=== PATIENT | male | born 1945 | race Caucasian/White ===

== ENCOUNTER 2017-06-20 14:19 | Inpatient (IN) ==
[2017-06-20] MEDS ORDERED: *HR* Heparin 5,000 UNIT/ML VIAL IVP ONE (14:48)
[2017-06-20] MEDS ORDERED: *HR* Heparin 5,000 UNIT/ML VIAL IVP PRN ×2 (14:48)
--- NOTE | 2017-06-20 14:48 | Emergency Department Note ---
Disposition Clinical Impression: NSTEMI (non-ST elevated myocardial infarction) CHF (congestive heart failure) Qualifiers: Congestive heart failure type: systolic Congestive heart failure chronicity: acute Qualified Code(s): I50.21 - Acute systolic (congestive) heart failure Disposition: Admitted As Inpatient Condition: Fair Chest Pain HPI - General Chief Complaint: ED Chest Pain Stated Complaint: shortness of breath Time Seen by Provider: 06/20/17 14:23 Source: patient Limitations: no limitations Vital Signs Reviewed: Yes Nursing Notes Reviewed: Yes - History of Present Illness HPI Narrative: Patient presents for evaluation of CHF exacerbation and an STEMI from [place] urgent care. Patient experienced chest pain started yesterday. Describes as chest tightness similar to previous [place]. Patient has history of 5 stents with most recent stent placed a year ago last January. Patient states this chest tightness feels like similar anginal pain. Patient continues to have pain at rest. Patient was found to have the following labs at urgent care. Patient requiring 2 L nasal cannula to keep his oxygen at 97%. Patient has home oxygen that he uses intermittently and has required over the last [address] elevation Urine is clear and otherwise unremarkable except for trace urine protein CBC: WBC 10. Hemoglobin 13.3. Platelets 323. No significant left shift. Chemistry: Troponin 0.113. AST 18. LT 33. Total bili 1.4. Direct bili 0.5. Calcium 9.2. Albumin 3.1. Sodium 139. Potassium 3.9. Chloride 102. Glucose 157. Bun 47. Creatinine 2.05. GFR 34.2. NT proBNP 7358 INR 5.3. PT 50.3. Chest x-ray concerning for CHF the disc has been sent to radiology to be uploaded Patient will need to be started on heparin. A BMP, troponin, EKG, coags have been ordered. The patient will receive sublingual nitroglycerin attempt to make him chest pain-free. The patient be admitted for CHF exacerbation and NSTEMI. Severity scale (1-10): 4 - Related Data Home Medications Medication Instructions Recorded Confirmed Aspirin Enteric Coated [Aspirin EC] 81 mg PO DAILY 05/21/15 06/20/17 Metoprolol XL (24 HR) Succ [Toprol 100 mg PO DAILY 05/21/15 06/20/17 XL] Amlodipine Besylate 10 mg PO DAILY 01/28/16 06/20/17 Atorvastatin [Lipitor] 40 mg PO HS 01/28/16 06/20/17 Magnesium Oxide [Mag-Ox] 400 mg PO TID 01/28/16 06/20/17 [place]-3/Dha/Epa/Fish Oil [Fish Oil 2 cap PO BID 01/28/16 06/20/17 1,000 mg Softgel] Omeprazole [PriLOSEC] 20 mg PO BIDAC 01/28/16 06/20/17 Saxagliptin HCl [Onglyza] 5 mg PO DAILY 01/28/16 06/20/17 glipiZIDE [Glipizide] 20 mg PO BID 01/28/16 06/20/17 Warfarin [Coumadin] 2 mg PO SUTUWEFRSA 02/12/16 06/20/17 Warfarin [Coumadin] 4 mg PO MOTH 02/12/16 06/20/17 Sour [place] Extract [Tart [place] 1,000 mg PO DAILY 06/20/17 06/20/17 Extract] Previous Rx's Medication Instructions Recorded Isosorbide MONOnitrate (24 HR) 30 mg PO DAILY #30 tab.er.24h 05/22/15 [Imdur] Furosemide [Lasix] 40 mg PO BID #60 tablet 01/31/16 Allergies Allergy/AdvReac Type Severity Reaction Status Date / Time No Known Allergies Allergy Verified 05/21/15 16:32 Review of Systems: CONSTITUTIONAL: No weight loss, fever, chills, weakness or fatigue. HEENT: Eyes: No visual changes. Ears, Nose, Throat: No hearing loss, difficulty talking or unable to swallow. SKIN: No rash or itching. CARDIOVASCULAR: Chest pain RESPIRATORY: Shortness of breath GASTROINTESTINAL: No anorexia, nausea, vomiting or diarrhea. No abdominal pain or blood. GENITOURINARY: No burning on urination or hematuria. NEUROLOGICAL: No headache, dizziness, syncope, paralysis, ataxia, numbness or tingling in the extremities. No change in bowel or bladder control. MUSCULOSKELETAL: No muscle pain, back pain, joint pain or stiffness. Chest Pain PMH - Past Medical History Medical history: Reports: atrial fibrillation, CHF, coronary artery disease, CVA , diabetes, GERD, hyperlipidemia, hypertension, myocardial infarction, renal disease, TIA Surgical history: Reports: orthopedic, other Psychiatric history: Reports: no psych history - Social History Smoking Status: Former smoker Alcohol use: Reports: none Drug use: Reports: none Physical Exam General: Well appearing, nontoxic, no acute distress Head: Normocephalic Atraumatic Eyes: PERRL, EOMI ENT: Airway patent, no stridor Neck: supple, no meningismus Chest: Rales at the bases bilaterally Cardiac: Regular rate and rhythm, no murmurs, rubs or gallops Abdomen: soft, nontender, nondistended; no guarding, rebound, or tenderness to percussion Musculoskeletal: Calves symmetric, nontender, no palpable cord Skin: No rash, normal skin tone Neuro: Alert and Oriented to person, place, and time; No focal deficit, CN 2-12 symmetric and intact - General Limitations: no limitations General appearance: alert, in no apparent distress Course - Reevaluation(s) Reevaluation #1: Patient's pain has improved with nitroglycerin. Pain is now a 1 out of 10. Patient will be placed on nitroglycerin topical. Patient will continued to be managed symptomatically. Heparin was initially ordered. The INR is greater than 5. Patient does not need heparin at this time. Heparin orders canceled. Patient did not receive any heparin while in the emergency department. - Consultations Consultation #1: Discussed with cardiology, Dr. Mcginnis. Recommends heparin only if INR drops below 2. Otherwise recommend symptomatically controlled with nitroglycerin, AV node blockers, morphine as needed. He has a previous cardiac catheter from 2016 that was complicated in nature. They will see him as a consult once the patient is admitted. Consultation #2: Discussed with Dr. Bo. Patient accepted for admission. Vital Signs Temperature 98.3 F 06/20/17 14:22 Pulse Rate 89 06/20/17 14:22 Respiratory Rate 21 06/20/17 14:22 Blood Pressure 145/85 06/20/17 14:22 O2 Sat by Pulse Oximetry 96 06/20/17 14:22 Temperature 98.3 F 06/20/17 14:39 Pulse Rate 84 06/20/17 17:16 Respiratory Rate 20 06/20/17 17:16 Blood Pressure 159/85 06/20/17 17:16 O2 Sat by Pulse Oximetry 94 06/20/17 17:16 Oxygen Delivery Oxygen Delivery Nasal Cannula Chest Pain - Medical Records Medical records reviewed: Yes I reviewed the patient's medical records. - Lab Data Lab results reviewed: Yes I reviewed the patient's lab results. Result diagrams: 06/20/17 14:52 Lab Results 06/20/17 06/20/17 06/20/17 Range/Units 14:52 14:52 14:52 PT 58.6 H* (9.4-12.1) Seconds INR 5.3 H* APTT 41.5 H (26.0-36.0) Seconds Sodium 141 (136-145) mEq/L Potassium 3.9 (3.5-5.1) mEq/L Chloride 103 (98-107) mEq/L Carbon Dioxide 29 (23-29) mEq/L BUN 47 H (8-23) mg/dL Creatinine 1.76 H (0.70-1.30) mg/dL Est GFR ( Amer) 46 L (> 60) Est GFR (Non-Af Amer) 38 L (> 60) BUN/Creatinine Ratio 27 H (6-26) Glucose 101 (70-105) mg/dL Calculated Osmolality 304 H (280-300) Calcium 9.4 (8.6-10.3) mg/dL Troponin I 0.10 H* (< 0.04) ng/mL - Radiology Data Radiology results reviewed: Yes I reviewed the patient's radiology results. - EKG Data EKG attestation: Yes I reviewed and interpreted this EKG. EKG results narrative: EKG shows atrial fibrillation with ventricular rate of 98. QRS 114. QTC 430. Patient has T-wave flattening along the lateral leads in comparison with previous EKG of 01/28/16. No other significant changes. No ST elevation or depression. Attestation Statement - Attestation Attestation: I examined this patient and my medical decision-making was reviewed with the Resident Physician. I agree with the documented findings, disposition and treatment plan as described except to the extent set forth below. 71-year-old male presents to ED from the [facility] due to chest pain. He has had chest pain intermittently through the day prompting workup at the [place] urgent care. He was found have elevated troponin and sent here for further evaluation. Patient is still complains of ongoing chest tightness that he describes a 4 out of 10 in intensity. No associated diaphoresis or nausea or vomiting. Complains of generalized fatigue. Pain is similar to what he has had in the past in 2016 when he required placement of coronary stents per Dr. Ela Jensen elderly male in no apparent distress. Oropharynx is clear with mucous membranes moist. Neck supple. Trachea midline. Lung exam with basilar rales. Cardiac exam is irregular, no murmurs Chest wall is nontender. Abdomen soft, nondistended and nontender. Extremities with bilateral mild pitting edema. EKG without acute changes. [facility] and his troponins elevated. He is given aspirin. His INR was greater than 5 so heparin was not started. He will be admitted for further evaluation and treatment. The high probability of a clinically significant, sudden or life threatening deterioration of the [cardiopulmonary] system(s) required my full and direct attention, intervention and personal management. The aggregate critical care time was [15] minutes. This time is in addition to time spent performing reported procedures but includes the following: [x] Data Review and interpretation [x] Patient assessment and monitoring of vital signs [x] Documentation [x] Medication orders and management
[2017-06-20] MEDS ORDERED: Furosemide 40 MG/4 ML VIAL IVP STA (14:53)
[2017-06-20] MEDS ORDERED: Aspirin 81 MG TAB.CHEW PO STA (14:55)
[2017-06-20] MEDS ORDERED: Heparin 25,000 UNIT/500 ML D5W 25,000 UNIT/500 ML BAG IVC SCH (15:00)
[2017-06-20 15:06] LABS: Activated Partial Thrombo Time 41.5 Seconds (26.0-36.0)
[2017-06-20 15:10] LABS: INR 5.3; Prothrombin Time 58.6 Seconds (9.4-12.1)
[2017-06-20 15:12] LABS: Calcium 9.4 mg/dL (8.6-10.3); Potassium 3.9 mEq/L (3.5-5.1)
[2017-06-20] MEDS: Nitroglycerin 0.4 MG TAB.SUBL SL PRN ×2 (15:45→15:54)
[2017-06-20] MEDS ORDERED: Nitroglycerin 1 INCH/GM PACKET TP ONE (17:22)
[2017-06-20 20:07] LABS: Basophils # 0.1 K/mcL (0.0-0.2); Basophils % 0.8 %; Eosinophils # 0.2 K/mcL (0.0-0.6); Eosinophils % 1.9 %; Hematocrit 33.2 % (37.5-50.1); Hemoglobin 10.4 g/dL (12.9-16.9); Immature Granulocytes % 0.3 % (0-4); Lymphocytes # 0.9 K/mcL (0.6-4.6); Lymphocytes % 10.8 %; Mean Corpuscular HGB Conc 31.3 g/dL (31.6-35.5); Mean Corpuscular Hemoglobin 28.6 pg (28.0-33.3); Mean Corpuscular Volume 91.2 fL (83.0-100.0); Mean Platelet Volume 9.4 fL (9.4-12.4); Monocytes # 0.8 K/mcL (0.0-1.3); Monocytes % 9.1 %; Neutrophils # 6.6 K/mcL (1.6-8.9); Nucleated Red Blood Cells 0.3 /100 WBC (0); Platelet Count 298 K/mcL (140-400); Red Blood Count 3.64 M/mcL (4.19-5.50); Segmented Neutrophils % 77.1 %
[2017-06-20] MEDS ORDERED: Ondansetron 4 MG/2 ML VIAL IVP PRN (20:16)
[2017-06-20] MEDS ORDERED: Naloxone 0.4 MG/ML INJ IVP PRN (20:16)
[2017-06-20 20:21] LABS: Albumin 3.4 g/dL (3.5-5.7); Bilirubin,Total 1.4 mg/dL (0.3-1.0); Calcium 9.5 mg/dL (8.6-10.3); Globulin 3.4 g/dL (2.4-3.5); Potassium 3.7 mEq/L (3.5-5.1); Total Protein 6.8 g/dL (6.4-8.9)
--- NOTE | 2017-06-20 20:43 | Internal Med History&Physical ---
Date of Encounter: 06/20/17 Time of Encounter: 19:30 Assessment and Plan (1) Chest tightness Current visit: Yes Status: Acute Patient reports acute chest pressure and tightness in central chest similar to previous [place]. Initial troponin 0.10. Pt. has hx of elevated troponins r/t MIs. Hx of stent placement x5. Nitro paste applied and pt. reports he now has no CP. Pt. currently has supretherapeutic INR @ 5.3 on admission. Continue pts. Coumadin w/pharmacy dosing for lab monitoring. Cardiology consult discussed w/ Dr. Mcginnis while pt. was in ED w/recommendation for heparin only if INR drops below 2, otherwise recommend symptomatically controlled with nitroglycerin, AV node blockers, and morphine as needed. I appreciate the consult. Aspirin. Lipitor. Continuous cardiac telemetry. Will trend troponins x2. Monitor pt. and f/u labs. Pt. discussed w/Dr. Gutierrez who is in agreement w/plan of care. Pt. is high risk for cardiac event based on current sx, exacerbation of CHF, hx, and risk factors. Inpatient. (2) Acute exacerbation of CHF (congestive heart failure) Current visit: Yes Status: Acute Acute exacerbation of CHF. Pt. reports SOB, dyspnea, and orthopnea for the past 2-3 days. 1+ bilateral pedal edema in LEs. Pt. reports taking PO lasix 40 mg BID. Hold PO lasix and administer 40 mg IVP lasix. Monitor I&O and daily weight. 1.5L daily fluid restriction. Continuous cardiac telemetry. Supplemental O2 w/titration and SpO2 monitoring. Echocardiogram ordered. Qualifiers: Congestive heart failure type: systolic Qualified Code(s): I50.23 - Acute on chronic systolic (congestive) heart failure (3) Supratherapeutic INR Current visit: Yes Status: Acute Acute supratherapeutic INR of 5.3 on admission. Coumadin w/pharmacy dosing to monitor coagulation status. Repeat PT/INR in a.m. labs. Monitor pt. for signs of bleeding. (4) HTN (hypertension) Current visit: Yes Status: Chronic Hx of chronic HTN. Monitor pt. and VS. patient's metoprolol, Imdur, and amlodipine. Qualifiers: Hypertension type: essential hypertension Qualified Code(s): I10 - Essential (primary) hypertension (5) HLD (hyperlipidemia) Current visit: Yes Status: Chronic Hx of chronic HLD. Lipid panel in a.m. labs. Continue pts. Lipitor. Qualifiers: Hyperlipidemia type: pure hypercholesterolemia Qualified Code(s): E78.00 - Pure hypercholesterolemia, unspecified; E78.0 - Pure hypercholesterolemia (6) CAD (coronary artery disease) Current visit: Yes Status: Chronic Hx of chronic CAD w/hx of previous [place] and stent placement x5. Continue pts. aspirin therapy, Coumadin w/pharmacy dosing, metoprolol, amlodipine, Imdur, and Lipitor. Lipid panel in a.m. labs. Qualifiers: Coronary Disease-Associated Artery/Lesion type: [place] artery [place] vs. transplanted heart: [place] heart Associated angina: without angina Qualified Code(s): I25.10 - Atherosclerotic heart disease of [place] coronary artery without angina pectoris (7) GERD (gastroesophageal reflux disease) Current visit: Yes Status: Chronic Hx of chronic GERD. IVP Zofran 4 mg Q8 for N/V. Continue pts. Prilosec. Qualifiers: Esophagitis presence: esophagitis presence not specified Qualified Code(s) : K21.9 - Gastro-esophageal reflux disease without esophagitis (8) Afib Current visit: Yes Status: Chronic Hx of chronic atrial fibrillation. Continuous cardiac telemetry. Continue pts. Coumadin w/pharmacy dosing. Qualifiers: Atrial fibrillation type: chronic Qualified Code(s): I48.2 - Chronic atrial fibrillation (9) Diabetes mellitus Current visit: Yes Status: Chronic Hx of chronic diabetes controlled by oral anti-hyperglycemic medications. Will hold PO meds and administer low-dose correction insulin sliding scale and hypoglycemic protocol. BG checks ACHS. A1c in a.m. labs. Qualifiers: Diabetes mellitus type: type 2 Diabetes mellitus complication status: with circulatory complication Diabetes mellitus complication detail: with other circulatory complications Diabetes mellitus snf insulin use: unspecified snf insulin use status Qualified Code(s): E11.59 - Type 2 diabetes mellitus with other circulatory complications (10) DVT prophylaxis Current visit: Yes Status: Acute Continue pts. Coumadin w/pharmacy dosing for DVT prophylaxis d/t pts. current INR of 5.3. Monitor pt. for signs of bleeding. Internal Medicine - H&P: HPI Chief complaint: Chest pain/SOB Admitted From: Emergency Dept ([facility]) Plans for Post Hospital Care: Home History of present illness: Mr. Nowak is a 71 year old male with medical hx of atrial fibrillation, CHF, CAD, CVA, diabetes controlled with oral anti-hyperglycemics, GERD, HLD, HTN, previous [place], and chronic kidney disease presents from the [place] urgent care with chief complaint of chest pressure and shortness of breath that began yesterday morning. Describes chest discomfort as pressure and central chest similar to previous [place] sx.Hx of placement of 5 stents with most recent in January 2017. Patient reports home oxygen use at 2 L via nasal cannula and states he believes current sx are due to CHF. Patient denies recent illness, fever, chills, nausea , vomiting, changes in vision, headache, cough, chest congestion, palpitations, unusual bleeding, dizziness, lightheadedness, weakness, fatigue, numbness, tingling, pre-syncope, or syncope. Past Med Surg Social Fam HX - Past Medical History Source: patient, old records reviewed Medical history: atrial fibrillation, CHF, coronary artery disease, CVA, diabetes, GERD, hyperlipidemia, hypertension, myocardial infarction, renal disease, TIA Psychiatric history: no psych history - Past Surgical History Surgical History: angioplasty/stent (x5), other (Tonsillectomy) - Social History Smoking Status: Former smoker Packs per day: 2 PPD - Reports quitting 20 years ago Smokeless Tobacco Status: No Alcohol use: none Drug use: none Occupational status: retired Current living situation: Home, With Family Activity Level: Uses cane/walker Recent Out of Country Travel Within the Last 8 Weeks: No Exposure or Possible Exposure to Illness During Travel: No - Family History Father Adopted: Yes Race: Family Member Ethnicity: Non- Living Status: Age at : 83 Cause of : [place] Hx Family Cardiac Disorders: Yes ([place]) Hx Family GI Disorders: Yes (Gastric ulcers) Mother Race: Family Member Ethnicity: Non- Living Status: Age at : 62 Cause of : Colon cancer Hx Family Cancer: Yes (Colon) Brother Race: Family Member Ethnicity: Non- Living Status: Still Living Hx Family Cardiac Disorders: Yes ([place] at age 68, CAD, Stents x3, Open heart surgery) Internal Medicine - H&P: Meds Aspirin Enteric Coated [Aspirin EC] 81 mg PO DAILY 05/21/15 [History] Metoprolol XL (24 HR) Succ [Toprol XL] 100 mg PO DAILY 05/21/15 [History] Isosorbide MONOnitrate (24 HR) [Imdur] 30 mg PO DAILY #30 tab.er.24h 05/22/15 [ Rx] Amlodipine Besylate 10 mg PO DAILY 01/28/16 [History] Atorvastatin [Lipitor] 40 mg PO HS 01/28/16 [History] Magnesium Oxide [Mag-Ox] 400 mg PO TID 01/28/16 [History] [place]-3/Dha/Epa/Fish Oil [Fish Oil 1,000 mg Softgel] 2 cap PO BID 01/28/16 [ History] Omeprazole [PriLOSEC] 20 mg PO BIDAC 01/28/16 [History] Saxagliptin HCl [Onglyza] 5 mg PO DAILY 01/28/16 [History] glipiZIDE [Glipizide] 20 mg PO BID 01/28/16 [History] Furosemide [Lasix] 40 mg PO BID #60 tablet 01/31/16 [Rx] Warfarin [Coumadin] 2 mg PO SUTUWEFRSA 02/12/16 [History] Warfarin [Coumadin] 4 mg PO MOTH 02/12/16 [History] Sour [place] Extract [Tart [place] Extract] 1,000 mg PO DAILY 06/20/17 [History] 3 Allergy/AdvReac Type Severity Reaction Status Date / Time No Known Allergies Allergy Verified 05/21/15 16:32 All Systems PM: A 10-system review of systems was performed and is negative for pertinent findings except as documented above in the HPI. - Constitutional Constitutional: no chills, no fever(s), no night sweats - EENT Eyes: no change in vision, no discharge, no pain, no photophobia Ears: no ear discharge, no ear pain, no tinnitus Nose, mouth and throat: no dysphagia, no nasal discharge, no neck pain, no sore throat - Breasts Breasts: as per HPI - Cardiovascular Cardiovascular ROS IM: as per HPI, chest pain, dyspnea, dyspnea on exertion, edema (Bilateral 1+ pitting edema), irregular heart rhythm (Atrial fibrillation) , orthopnea, no diaphoresis, no lightheadedness, no palpitations, no syncope - Respiratory Respiratory: as per HPI, dyspnea, dyspnea on exertion, no cough, no wheezing, no excessive phlegm production - Gastrointestinal Gastrointestinal: no abdominal pain, no diarrhea, no hematemesis, no hematochezia, no melena, no nausea, no vomiting - Genitourinary Genitourinary ROS male: as per HPI - Musculoskeletal Musculoskeletal ROS IM: no numbness, no tingling - Integumentary Integumentary IM: no rash, no unusual bruising - Neurological Neurological ROS: no confusion, no convulsions, no focal weakness, no numbness, no tingling, no tremor(s) - Psychiatric Psychiatric: as per HPI - Endocrine Endocrine IM: as per HPI - Hematologic/Lymphatic Hematologic/Lymphatic: no easy bruising - Allergic/Immunologic Allergic/Immunologic: as per HPI - Constitutional Vitals: Temp Pulse Resp BP Pulse Ox 97.9 F 110 18 135/70 92 06/20/17 18:01 06/20/17 18:01 06/20/17 18:01 06/20/17 18:01 06/20/17 18:01 General appearance: Present: cooperative, A&O X 3, pleasant, no acute distress, obese, answers questions appropriately - Head Head exam: Present: atraumatic, normocephalic - Eye Eye exam: Present: PERRL, conjuntiva pink, sclera anicteric Pupils: Present: PERRL - ENT ENT exam: Present: normal exam - Neck Neck exam general surgery: Present: normal inspection, supple, trachea midline. Absent: lymphadenopathy - Respiratory Respiratory exam: Present: decreased breath sounds. Absent: accessory muscle use, rales, rhonchi, wheezes - Cardiovascular Cardiovascular exam: Present: irregular rhythm (Atrial fibrillation) - GI/Abdominal GI/Abdominal exam: Present: normal bowel sounds, soft, no peritoneal signs. Absent: distended, tenderness - Rectal Rectal exam: Present: deferred - Additional comments: exam deferred. - Extremities Exam Extremities exam: Present: pedal edema (1+ bilaterally), warm, radial pulses palpable and symmetrical. Absent: calf tenderness, cyanotic - Back Exam Back exam: Present: normal inspection - Neurological Exam Neurological exam: Present: CN II-XII intact, oriented X3, no focal deficits. Absent: pronater drift, facial droop, speech deficit - Psychiatric Psychiatric exam: Present: normal affect, normal mood - Skin Skin exam: Present: dry, intact Internal Med - H&P Results - Labs CBC & Chem 7: 06/20/17 19:58 06/20/17 19:58 Labs: Short CBC 06/20/17 Range/Units 19:58 WBC 8.6 (4.3-11.1) K/mcL Hgb 10.4 L (12.9-16.9) g/dL Hct 33.2 L (37.5-50.1) % Plt Count 298 (140-400) K/mcL Neutrophils # 6.6 (1.6-8.9) K/mcL BMP 06/20/17 19:58 Sodium 143 Potassium 3.7 Chloride 103 Carbon Dioxide 31 H BUN 47 H Creatinine 1.68 H Glucose 68 L Calcium 9.5 Liver Function 06/20/17 Range/Units 19:58 Total Bilirubin 1.4 H (0.3-1.0) mg/dL AST 16 (13-39) Units/L ALT 21 (7-52) Units/L Alkaline Phosphatase 47 (34-104) Units/L Albumin 3.4 L (3.5-5.7) g/dL - EKG Data Prior EKG available for review: yes Interpretation IM: suggestive of ischemia EKG comments: 06/20/17 20:48 EKG dated 01/28/16 shows atrial fibrillation with possible inferior myocardial infarction, probably old. EKG dated 06/20/17 shows atrial fibrillation with aberrant conduction or ventricular premature complexes, minimal voltage criteria for LVH, consider normal variant, inferior myocardial infarction (probably old).
[2017-06-20] MEDS ORDERED: *HR* Dextrose 50 % in Water (Syg) 50 ML SYRINGE IVP PRN (20:58)
[2017-06-20] MEDS ORDERED: D5% in Water 1,000 ML IVC PRN (20:58)
[2017-06-20] MEDS ORDERED: Dextrose Gel 15 GM/37.5 ML TUBE PO PRN ×2 (20:58)
[2017-06-20] MEDS: Insulin LISPRO 300 UNITS/3 ML VIAL SQ SCH (21:23)
[2017-06-20] MEDS: Magnesium Oxide 400 MG TABLET PO SCH (21:29)
[2017-06-20] MEDS: (Omega-3/Dha/Epa/Fish Oil [Fish Oil 1,000 Mg Softgel]) PO SCH (21:30)
[2017-06-20] MEDS: Furosemide 40 MG/4 ML VIAL IVP SCH (21:30)
[2017-06-21 05:08] LABS: Basophils # 0.1 K/mcL (0.0-0.2); Basophils % 0.8 %; Eosinophils # 0.3 K/mcL (0.0-0.6); Eosinophils % 2.9 %; Hematocrit 33.9 % (37.5-50.1); Hemoglobin 10.3 g/dL (12.9-16.9); Immature Granulocytes % 0.6 % (0-4); Lymphocytes # 0.8 K/mcL (0.6-4.6); Lymphocytes % 7.9 %; Mean Corpuscular HGB Conc 30.4 g/dL (31.6-35.5); Mean Corpuscular Hemoglobin 28.2 pg (28.0-33.3); Mean Corpuscular Volume 92.9 fL (83.0-100.0); Mean Platelet Volume 10.1 fL (9.4-12.4); Monocytes # 0.8 K/mcL (0.0-1.3); Monocytes % 8.1 %; Neutrophils # 7.7 K/mcL (1.6-8.9); Nucleated Red Blood Cells 0.2 /100 WBC (0); Platelet Count 329 K/mcL (140-400); Red Blood Count 3.65 M/mcL (4.19-5.50); Segmented Neutrophils % 79.7 %
[2017-06-21 05:17] LABS: Activated Partial Thrombo Time 39.7 Seconds (26.0-36.0); Hemoglobin A1C 8.6 %
[2017-06-21 05:21] LABS: INR 4.9
[2017-06-21 05:28] LABS: Albumin 3.5 g/dL (3.5-5.7); Bilirubin,Total 1.3 mg/dL (0.3-1.0); Calcium 9.6 mg/dL (8.6-10.3); Chol/HDL Ratio 4.1 (0-4.9); Globulin 3.4 g/dL (2.4-3.5); Magnesium 1.8 mg/dL (1.6-2.6); Potassium 4.7 mEq/L (3.5-5.1); Total Protein 6.9 g/dL (6.4-8.9)
[2017-06-21] MEDS ORDERED: Isosorbide MONOnitrate (24 HR) 30 MG TAB.ER.24H PO SCH (09:00)
[2017-06-21] MEDS ORDERED: INSULIN GLARGINE 36 UNIT SQ SCH (09:00)
[2017-06-21] MEDS: Insulin LISPRO 300 UNITS/3 ML VIAL SQ SCH ×4 (10:02→21:54)
[2017-06-21] MEDS: Aspirin Enteric Coated 81 MG Tablet PO SCH (10:07)
[2017-06-21] MEDS: Furosemide 40 MG/4 ML VIAL IVP SCH ×2 (10:07→16:59)
[2017-06-21] MEDS: Magnesium Oxide 400 MG TABLET PO SCH ×3 (10:08→21:53)
[2017-06-21] MEDS: (Omega-3/Dha/Epa/Fish Oil [Fish Oil 1,000 Mg Softgel]) PO SCH ×2 (10:08→21:54)
[2017-06-21] MEDS: amLODIPine 5 MG TABLET PO SCH (10:08)
[2017-06-21] MEDS: Metoprolol XL (24 HR) Succ 50 MG TAB.ER.24H PO SCH (10:08)
[2017-06-21] MEDS: Insulin DETEMIR 100 UNIT/ML X5UNITS SQ SCH (10:15)
[2017-06-21] MEDS ORDERED: Perflutren Lipid Microsphere 1.3 ML in 0.9 % Sodium Chloride 8.7 ML IVP ONE (11:26)
[2017-06-21] MEDS ORDERED: Acetaminophen 325 MG TABLET PO PRN (13:54)
--- NOTE | 2017-06-21 14:41 | Cardiology Consult Note ---
<Shaheen Hess - Last Filed: 06/21/17 15:09> Date of Encounter: 06/21/17 Time of Encounter: 14:40 Assessment and Plan (1) Acute exacerbation of CHF (congestive heart failure) Current Visit: Yes Status: Acute Per Cardiology: History of mild ischemic cardiomyopathy. Last echo 12/2015: Impressions: Mildly dilated left ventricle. Moderate LV systolic dysfunction, LVEF 35-40%. There are regional wall motion abnormalities, see diagram below. Indeterminate diastolic function due to atrial fibrillation. Right ventricle not well visualized. Appears grossly normal in size and function. Mildly dilated left atrium. Mildly dilated right atrium. Moderate mitral regurgitation. Mild-moderate tricuspid regurgitation. Moderate pulmonary hypertension. Estimated RVSP = 54 mmHg. Current echo pending. Will check BNP. Will initiate strict I and O, 1.5 L fluid restriction, bilateral ASHLEE hose. Patient reports recent increased thirst and fluid intake, however baseline weight has been stable around 207 pounds. On IV Lasix 40 mg twice a day. Net I&O = -1305ml. Continue with diuresis, monitor kidney function closely. Qualifiers: Congestive heart failure type: systolic Qualified Code(s): I50.23 - Acute on chronic systolic (congestive) heart failure (2) Elevated troponin I measurement Current Visit: Yes Status: Acute Per Cardiology: Troponin is mildly elevated with peak of 0.12. Currently chest pain-free. Suspect the main ischemia in setting of acute systolic CHF on chronic CHF and known chronic CKD. Echo pending. No cardiac rehabilitation consult warranted at this time. (3) CAD (coronary artery disease) Current Visit: Yes Status: Chronic Per Cardiology: Known history of CAD with last heart catheterization January 2016 with drug- eluting stent to proximal circumflex 90% lesion and mid circumflex 90% lesion. Underwent PTCA for OM1 90% lesion with final stenosis of 85%-- noted to be jailed lesion. On Imdur 30mg PO daily. Will increase Imdur. On BB, statin, asa. Will monitor echo and eval for need of repeat ischemic eval-- possible ST vs LHC if clinically warranted. Will discuss with Dr. Mcginnis. Qualifiers: Coronary Disease-Associated Artery/Lesion type: [place] artery [place] vs. transplanted heart: [place] heart Associated angina: without angina Qualified Code(s): I25.10 - Atherosclerotic heart disease of [place] coronary artery without angina pectoris (4) Afib Current Visit: Yes Status: Chronic Per Cardiology: Known history of atrial fibrillation. Remains rate controlled. Anticoagulated with Coumadin followed by outside facility. Qualifiers: Atrial fibrillation type: chronic Qualified Code(s): I48.2 - Chronic atrial fibrillation (5) Supratherapeutic INR Current Visit: Yes Status: Acute Per Cardiology: Presented with supratherapeutic INR. Currently on hold. Denies any active bleeding or blood loss. Monitor cautiously. (6) CKD (chronic kidney disease) Current Visit: No Status: Chronic Per Cardiology: Known history of CKD. Kidney function currently around baseline. Monitor closely with diuresis. We'll need to monitor closely if further ischemic evaluation warranted. Qualifiers: Chronic kidney disease stage: stage 3 (moderate) Qualified Code(s): N18.3 - Chronic kidney disease, stage 3 (moderate) Discussion w patient/family: The assessment and plan as outlined above was discussed with the patient who expressed understanding and agreement. All questions were answered. Thank you for involving us in the care of your patient. Please call with any questions. History of Present Illness Consult date: 06/21/17 Requesting physician: Rosario Gutierrez Consult reason: CP Chief complaint: CP History of present illness: Mr. Nowak is a 71 year old male with relevant past history of atrial fibrillation on Coumadin for anticoagulation, ischemic cardio myopathy, hypertension, DM 2, history of CVA, CKD. Last seen by Dr. Mahmood with cardiology November 2016. Cardiology consult for shortness of breath, chest tightness, mild troponin elevation. Patient reports his normal state of health up until this past Thursday. He reports he noticed progressive worsening short of breath at rest and with exertion. He reports increased dry mouth and thirst and increased fluid intake over the past few days. He reports daily weights at home have been running stable at about 207 pounds. He reports increased swelling to lower extremities and abdominal distention. Reports recent breath has improved during hospital stay. He reports he did develop chest tightness with exertional activities and breathing the past few days. He denies any palpitations, dizziness, syncope, falls. He reports compliance with Coumadin being managed by Coumadin clinic in [facility]. He denies any active bleeding or blood loss. Denies any recent infectious process, denies any fever, chills, nausea, vomiting, diarrhea, cough. Reports compliance with medicines. Past Med Surg Social Fam HX - Past Medical History Attestation: Yes The following information was validated with the patient. Source: patient, old records reviewed Medical history: atrial fibrillation, CHF, coronary artery disease, CVA, diabetes, GERD, hyperlipidemia, hypertension, myocardial infarction, renal disease, TIA Psychiatric history: no psych history - Past Surgical History Surgical History: angioplasty/stent (x5), other (Tonsillectomy) - Social History Smoking Status: Former smoker Packs per day: 2 PPD - Reports quitting 20 years ago Smokeless Tobacco Status: No Alcohol use: none Drug use: none - Family History Father Adopted: Yes Race: Family Member Ethnicity: Non- Living Status: Age at : 83 Cause of : ND Hx Family Cardiac Disorders: Yes (ND) Hx Family Respiratory Disorders: No Hx Family Cancer: No Hx Family GI Disorders: Yes (Gastric ulcers) Hx Family Endocrine Disorder: No Hx Family Neuromuscular Disorders: No Hx Family Neurologic Disorders: No Hx Family HEENT Disorders: No Hx Family Autoimmune Disorders: No Mother Race: Family Member Ethnicity: Non- Living Status: Age at : 62 Cause of : Colon cancer Hx Family Cancer: Yes (Colon) Brother Race: Family Member Ethnicity: Non- Living Status: Still Living Hx Family Cardiac Disorders: Yes (ND at age 68, CAD, Stents x3, Open heart surgery) Medications and Allergies Aspirin Enteric Coated [Aspirin EC] 81 mg PO DAILY 05/21/15 [History] Metoprolol XL (24 HR) Succ [Toprol XL] 100 mg PO DAILY 05/21/15 [History] Isosorbide MONOnitrate (24 HR) [Imdur] 30 mg PO DAILY #30 tab.er.24h 05/22/15 [ Rx] Amlodipine Besylate 10 mg PO DAILY 01/28/16 [History] Atorvastatin [Lipitor] 40 mg PO HS 01/28/16 [History] Magnesium Oxide [Mag-Ox] 400 mg PO TID 01/28/16 [History] Burg[place]-3/Dha/Epa/Fish Oil [Fish Oil 1,000 mg Softgel] 2 cap PO BID 01/28/16 [ History] Omeprazole [PriLOSEC] 20 mg PO BIDAC 01/28/16 [History] Saxagliptin HCl [Onglyza] 5 mg PO DAILY 01/28/16 [History] glipiZIDE [Glipizide] 20 mg PO BID 01/28/16 [History] Furosemide [Lasix] 40 mg PO BID #60 tablet 01/31/16 [Rx] Warfarin [Coumadin] 2 mg PO SUTUWEFRSA 02/12/16 [History] Warfarin [Coumadin] 4 mg PO MOTH 02/12/16 [History] Insulin Glargine [Lantus] 36 unit SQ QAM 06/20/17 [History] Sour Marques Extract [Tart Marques Extract] 1,000 mg PO DAILY 06/20/17 [History] 3 Allergy/AdvReac Type Severity Reaction Status Date / Time No Known Allergies Allergy Verified 05/21/15 16:32 All Systems Review: A 10-system review of systems was performed and is negative for pertinent findings except as documented above in the HPI. - Constitutional Constitutional: fatigue - Cardiovascular Cardiovascular: as per HPI, chest pain at rest, dyspnea at rest, dyspnea on exertion, leg edema - Respiratory Respiratory: dyspnea Physical Examination Vital Signs, Last 4 Hours Temp Pulse Resp BP Pulse Ox 06/21/17 14:28 98.2 F 89 18 124/63 94 General: Conversant, No Apparent Distress HEENT: Atraumatic, Normocephaly, Mucus Membranes Moist Neck: No JVD, Normal carotid pulses Cardiac: No Murmur, Other (Irregularly irregular) Lungs: Other (Diminished bilateral bases) Neuro: Alert and responsive, No focal deficits noted Abdomen: Soft, Non-Tender, Other (Slightly distended) Skin: No rashes noted on visualized skin Musculoskeletal: No Chest Wall Tenderness, Other (has walker at bedside) Extremities: No Clubbing, No Cyanosis, Normal Pulses, Other (+1 pitting edmea bilateral LE) Results 06/21/17 04:12 06/21/17 04:12 Lab Results Laboratory Tests 06/20/17 06/20/17 06/20/17 14:52 14:52 21:44 INR 5.3 H* Creatinine AST ALT Troponin I 0.10 H* 0.12 H* LDL Cholesterol, Calc 06/21/17 06/21/17 06/21/17 04:12 04:12 04:12 INR 4.9 H* Creatinine 1.75 H AST 18 ALT 24 Troponin I 0.10 H* LDL Cholesterol, Calc 36 06/21/17 11:45 INR Creatinine AST ALT Troponin I 0.07 H* LDL Cholesterol, Calc ITS Impressions Chest X-Ray 06/20/17 20:50 IMPRESSION: Suspected central pulmonary vascular congestion. D/ / Thania Houston Cha, MD / Thania Houston Cha, MD Interpreting Provider: Thania Houston Cha, MD Intake & Output 06/18/17 06/19/17 06/20/17 06/21/17 23:59 23:59 23:59 23:59 Intake Total 520 / 520 Output Total 1825 / 1825 Balance -1305 / -1305 Weight 92.079 kg 92.4 kg Active Medications Acetaminophen (Tylenol) 650 mg PO Q6HR PRN PRN Reason: Pain Stop: 12/21/17 13:55 Last Admin: 06/21/17 14:27 Dose: 650 mg Amlodipine Besylate (Norvasc) 10 mg PO DAILY MARIO Stop: 12/21/17 09:01 Last Admin: 06/21/17 10:08 Dose: 10 mg Aspirin (Aspirin Ec) 81 mg PO DAILY MARIO Stop: 12/21/17 09:01 Last Admin: 06/21/17 10:07 Dose: 81 mg Atorvastatin Calcium (Lipitor) 40 mg PO HS MARIO Stop: 12/20/17 21:01 Last Admin: 06/20/17 21:29 Dose: 40 mg Dextrose/Water (Dextrose 50% (Syg)) 25 ml IVP AD PRN PRN Reason: Hypoglycemia Stop: 12/20/17 20:59 Furosemide (Lasix) 40 mg IVP BIDDIURETIC MARIO Stop: 12/20/17 21:01 Last Admin: 06/21/17 10:07 Dose: 40 mg Glucagon (Glucagen) 1 mg IM ONCE PRN PRN Reason: Hypoglycemia Stop: 12/20/17 20:59 Glucose (Gluctose) 15 gm PO ONCE PRN PRN Reason: Hypoglycemia Stop: 12/20/17 20:59 Glucose (Gluctose) 30 gm PO ONCE PRN PRN Reason: Hypoglycemia Stop: 12/20/17 20:59 Dextrose (Dextrose 5%) 1,000 mls @ 100 mls/hr IVC .Q10H PRN PRN Reason: HYPOGLYCEMIA Stop: 12/20/17 20:59 Insulin Detemir (Levemir) 36 unit SQ QAM [facility] Stop: 12/21/17 09:01 Last Admin: 06/21/17 10:15 Dose: 36 unit Insulin Human Lispro (Humalog) 0 units SQ TIDAC [facility] PRN Reason: Protocol Stop: 12/21/17 07:31 Last Admin: 06/21/17 11:59 Dose: 2 units Insulin Human Lispro (Humalog) 0 units SQ HS [facility] PRN Reason: Protocol Stop: 12/20/17 21:01 Last Admin: 06/20/17 21:23 Dose: Not Given Isosorbide Mononitrate (Imdur) 30 mg PO DAILY [facility] Stop: 12/21/17 09:01 Last Admin: 06/21/17 10:07 Dose: 30 mg Magnesium Oxide (Mag-Ox) 400 mg PO TID [facility] PRN Reason: Protocol Stop: 12/20/17 21:01 Last Admin: 06/21/17 14:23 Dose: 400 mg Metoprolol Succinate (Toprol Xl) 100 mg PO DAILY [facility] Stop: 12/21/17 09:01 Last Admin: 06/21/17 10:08 Dose: 100 mg Naloxone HCl (Narcan) 0.4 mg IVP Q2MIN PRN PRN Reason: Opioid Reversal Stop: 12/20/17 20:17 Nitroglycerin (Nitroglycerin) 0.4 mg SL Q5MIN PRN PRN Reason: Chest Pain Stop: 12/20/17 14:41 Last Admin: 06/20/17 15:54 Dose: 0.4 mg Omeprazole (Prilosec) 20 mg PO BIDAC [facility] PRN Reason: Protocol Stop: 12/21/17 07:31 Last Admin: 06/21/17 10:07 Dose: 20 mg Ondansetron HCl (Zofran) 4 mg IVP Q8HR PRN PRN Reason: Nausea And Vomiting Stop: 12/20/17 20:17 Pharmacy Profile Note (Patient Taking Own Medication) 0 each PO BID [facility] Stop: 12/20/17 21:01 Last Admin: 06/21/17 10:08 Dose: Not Given Warfarin Sodium (Coumadin Perpt) 0 each PO DAILY@1800 PRN PRN Reason: SEE COMMENTS Stop: 12/21/17 18:01 ECHO 12/2015: Impressions: Mildly dilated left ventricle. Moderate LV systolic dysfunction, LVEF 35-40%. There are regional wall motion abnormalities, see diagram below. Indeterminate diastolic function due to atrial fibrillation. Right ventricle not well visualized. Appears grossly normal in size and function. Mildly dilated left atrium. Mildly dilated right atrium. Moderate mitral regurgitation. Mild-moderate tricuspid regurgitation. Moderate pulmonary hypertension. Estimated RVSP = 54 mmHg. - Imaging and Cardiology Cardiac cath: report reviewed - EKG Interpretation EKG results cardiology: personally reviewed (A. fib in the 90s with occasional PVC), no diagnostic ischemia, other (Remains A. fib on telemetry in the 80s) Consult Discharge Plan - Plan [facility]errals: [facility]Primary Care Provider[facility] - <Dennise Mcginnis - Last Filed: 06/21/17 16:57> Date of Encounter: 06/21/17 - Attending Attestation I examined this patient and my medical decision-making was reviewed with the FLOORS BUFFER. I agree with the documented findings, disposition and treatment plan as described. Impression: 71-year-old male with known ischemic cardiomyopathy presenting with acute systolic CHF exacerbation and mild, flat troponin elevation with elevated INR. Plan: ADHF: Echo returned demonstrating stable systolic dysfunction, EF 35-40%. Agree with IV diuresis, fluid restriction and strict I's and O's. Continue medical management. CAD: Mild, flat elevated troponin does not appear to represent an acute coronary syndrome in this case. EF remains unchanged. Patient is not having chest pain and they are not are no acute EKG findings. Continue medical management. Mechanical mitral valve: Presented with supratherapeutic INR. When INR falls below 3.5, can restart coumadin. Goal INR 2.5-3.5. Afib: Rate controlled with known history of atrial fibrillation. Anticoagulated with Coumadin. Assessment and Plan Discussion w patient/family: The assessment and plan as outlined above was discussed with the patient and/or family members who expressed understanding and agreement. All questions were answered. Thank you for involving us in the care of your patient. Please call with any questions. History of Present Illness History of present illness: Mr. Nowak is a 71 year old male All Systems Review: A 10-system review of systems was performed and is negative for pertinent findings except as documented above in the HPI. Physical Examination Vital Signs, Last 4 Hours Temp Pulse Resp BP Pulse Ox 06/21/17 14:28 98.2 F 89 18 124/63 94 Results 06/21/17 04:12 06/21/17 04:12 Lab Results 06/20/17 06/21/17 06/21/17 21:44 04:12 04:12 WBC 9.6 Hgb 10.3 L Hct 33.9 L Plt Count 329 INR APTT Sodium Potassium Chloride Carbon Dioxide BUN Creatinine Glucose Calcium Magnesium Total Bilirubin AST ALT Alkaline Phosphatase Troponin I 0.12 H* 0.10 H* 06/21/17 06/21/17 06/21/17 04:12 04:12 11:45 WBC Hgb Hct Plt Count INR 4.9 H* APTT 39.7 H Sodium 145 Potassium 4.7 D Chloride 103 Carbon Dioxide 31 H BUN 49 H Creatinine 1.75 H Glucose 160 H Calcium 9.6 Magnesium 1.8 Total Bilirubin 1.3 H AST 18 ALT 24 Alkaline Phosphatase 48 Troponin I 0.07 H*
[2017-06-21] MEDS: *HR* HYDROcodone/Acet 5/325 mg TABLET PO PRN (16:59)
[2017-06-21] MEDS ORDERED: Warfarin perPT PO PRN (18:00)
--- NOTE | 2017-06-21 18:09 | Internal Med Progress Note ---
Date of Encounter: 06/21/17 Time of Encounter: 13:30 - Assessment and plan (1) Acute exacerbation of CHF (congestive heart failure) Current Visit: Yes Status: Acute Assessment and plan: Pt admitted for acute CHF Currently he is negative fluid balance. Continue diuresis and monitoring of renal function. Appreciate cardiology input. Qualifiers: Congestive heart failure type: systolic Qualified Code(s): I50.23 - Acute on chronic systolic (congestive) heart failure (2) Afib Current Visit: Yes Status: Chronic Assessment and plan: Rate controlled. Continue home meds. Qualifiers: Atrial fibrillation type: chronic Qualified Code(s): I48.2 - Chronic atrial fibrillation (3) Diabetes mellitus Current Visit: Yes Status: Chronic Assessment and plan: Monitoring blood sugars and coverage. Qualifiers: Diabetes mellitus type: type 2 Diabetes mellitus complication status: with circulatory complication Diabetes mellitus complication detail: with other circulatory complications Diabetes mellitus mcc insulin use: unspecified long term care administrator insulin use status Qualified Code(s): E11.59 - Type 2 diabetes mellitus with other circulatory complications (4) Hypertension Current Visit: No Status: Chronic Assessment and plan: Chronic issue. Continue current meds. Qualifiers: Hypertension type: essential hypertension Qualified Code(s): I10 - Essential (primary) hypertension (5) CKD (chronic kidney disease) Current Visit: No Status: Chronic Assessment and plan: Chronic issue Qualifiers: Chronic kidney disease stage: stage 3 (moderate) Qualified Code(s): N18.3 - Chronic kidney disease, stage 3 (moderate) (6) Supratherapeutic INR Current Visit: Yes Status: Acute Assessment and plan: Following. - Subjective Interval history: Mr Nowak is currently admitted for acute CHF and elevated troponin. He remains moderate to high risk due to potential for worsening clinical status. Mr Nowak is breathing somewhat better. No chest tightness at this time. No fever. No cough. Appetite is fair. - Constitutional Vitals: Temp Pulse Resp BP Pulse Ox 98.2 F 89 18 124/63 94 06/21/17 14:28 06/21/17 14:28 06/21/17 14:28 06/21/17 14:28 06/21/17 14:28 General appearance: Present: cooperative, A&O X 3, pleasant, obese, answers questions appropriately - Head Head exam: Present: atraumatic, normocephalic - Eye Eye exam: Present: EOMI, conjuntiva pink - ENT ENT exam: Present: mucous membranes dry - Respiratory Respiratory exam: Present: decreased breath sounds, rales. Absent: rhonchi, wheezes - Cardiovascular Cardiovascular exam: Present: irregular rhythm. Absent: tachycardia - GI/Abdominal GI/Abdominal exam: Present: soft. Absent: tenderness - Extremities Exam Extremities exam: Present: pedal edema, warm. Absent: tenderness - Neurological Exam Neurological exam: Present: alert, oriented X3 - Skin Skin exam: Present: warm. Absent: rash Internal Medicine: Result - Labs CBC & Chem 7: 06/21/17 04:12 06/21/17 04:12 Labs: Short CBC 06/21/17 Range/Units 04:12 WBC 9.6 (4.3-11.1) K/mcL Hgb 10.3 L (12.9-16.9) g/dL Hct 33.9 L (37.5-50.1) % Plt Count 329 (140-400) K/mcL Neutrophils # 7.7 (1.6-8.9) K/mcL BMP 06/21/17 04:12 Sodium 145 Potassium 4.7 D Chloride 103 Carbon Dioxide 31 H BUN 49 H Creatinine 1.75 H Glucose 160 H Calcium 9.6 Cardiac Enzymes 06/20/17 06/21/17 06/21/17 Range/Units 21:44 04:12 11:45 Troponin I 0.12 H* 0.10 H* 0.07 H* (< 0.04) ng/mL Liver Function 06/21/17 Range/Units 04:12 Total Bilirubin 1.3 H (0.3-1.0) mg/dL AST 18 (13-39) Units/L ALT 24 (7-52) Units/L Alkaline Phosphatase 48 (34-104) Units/L Albumin 3.5 (3.5-5.7) g/dL - ABG Interpretation ABG results: PT/INR, D-dimer PT 55.0 Seconds (9.4-12.1) H* 06/21/17 04:12 - Impressions Impressions Echocardiogram 06/20/17 20:38 Impressions: LVEF 35-40%. Global and regional LV systolic dysfunction. Definity echo contrast was used. There is no LV thrombus. RV is mildly dilated with low normal function. Mildly dilated left ventricle. Mild-moderate mitral regurgitation. Mild-moderate tricuspid regurgitation. Mild pulmonary hypertension. Left Ventricular Wall Motion: Rest Echo Findings The apex, apical inferior, mid inferior, basal inferior, apical anterior, mid anterior, basal anterior, apical septal, mid inferior septal, basal inferior septal, apical lateral, mid anterior lateral, basal anterior lateral, mid anterior septal, mid inferior lateral, basal anterior septal and basal inferior lateral galdamez were hypokinetic. Findings: Study Quality * Technically adequate exam. ECG Findings * Atrial fibrillation. Left Ventricle * LVEF 35-40%. * Possibly mild increase in LV wall thickness. * Definity echo contrast was used. * There is no LV thrombus. * Mildly dilated left ventricle. Right Ventricle * RV is mildly dilated with low normal function. Left Atrium * Moderately dilated left atrium. Right Atrium * Moderately dilated right atrium. Aortic Valve * No aortic regurgitation. * Trileaflet aortic valve. * No aortic stenosis. Mitral Valve * Normal mitral valve structure. * No mitral stenosis. * Mild mitral annular calcification * Mild-moderate mitral regurgitation. Tricuspid Valve * Normal tricuspid valve structure. * Mild-moderate tricuspid regurgitation. * Estimated RA pressure is 8 mmHg. * Estimated RVSP is 42 mmHg. * Mild pulmonary hypertension. Pulmonic Valve * Pulmonic valve not well visualized. * No pulmonic regurgitation. * No pulmonic stenosis. Pulmonary Artery * Pulmonary artery not well visualized. Aorta * Normally sized aortic root. * Ascending aorta not well visualized. Pericardium * There is no pericardial effusion present. Interatrial Septum * No evidence of PFO by color Doppler. IVC * The IVC is dilated. * > 50% respiratory change Chest X-Ray 06/20/17 20:50 IMPRESSION: Suspected central pulmonary vascular congestion. D/ / Thania Houston Cha, MD / Thania Houston Cha, MD Interpreting Provider: Thania Houston Cha, MD Consult Discharge Plan - Plan [facility]errals[facility] [Primary Care Provider[facility] -
[2017-06-22] MEDS: *HR* HYDROcodone/Acet 5/325 mg TABLET PO PRN ×3 (04:06→21:06)
[2017-06-22 05:54] LABS: INR 4.3
[2017-06-22 05:58] LABS: Prothrombin Time 48.1 Seconds (9.4-12.1)
[2017-06-22] MEDS: Isosorbide MONOnitrate (24 HR) 30 MG TAB.ER.24H PO SCH (09:45)
[2017-06-22] MEDS: Aspirin Enteric Coated 81 MG Tablet PO SCH (09:45)
[2017-06-22] MEDS: Furosemide 40 MG/4 ML VIAL IVP SCH ×2 (09:45→16:49)
[2017-06-22] MEDS: amLODIPine 5 MG TABLET PO SCH (09:45)
[2017-06-22] MEDS: Magnesium Oxide 400 MG TABLET PO SCH ×3 (09:45→21:07)
[2017-06-22] MEDS: Metoprolol XL (24 HR) Succ 50 MG TAB.ER.24H PO SCH (09:45)
[2017-06-22] MEDS: (Omega-3/Dha/Epa/Fish Oil [Fish Oil 1,000 Mg Softgel]) PO SCH (09:46)
[2017-06-22] MEDS: Insulin LISPRO 300 UNITS/3 ML VIAL SQ SCH ×4 (09:47→21:54)
[2017-06-22] MEDS: Insulin DETEMIR 100 UNIT/ML X5UNITS SQ SCH (09:51)
[2017-06-22 10:41] LABS: Basophils # 0.1 K/mcL (0.0-0.2); Basophils % 0.8 %; Eosinophils # 0.4 K/mcL (0.0-0.6); Eosinophils % 3.5 %; Hematocrit 39.4 % (37.5-50.1); Hemoglobin 11.8 g/dL (12.9-16.9); Immature Granulocytes % 0.5 % (0-4); Lymphocytes # 0.9 K/mcL (0.6-4.6); Lymphocytes % 7.9 %; Mean Corpuscular HGB Conc 29.9 g/dL (31.6-35.5); Mean Corpuscular Hemoglobin 28.1 pg (28.0-33.3); Mean Corpuscular Volume 93.8 fL (83.0-100.0); Mean Platelet Volume 9.7 fL (9.4-12.4); Monocytes # 0.7 K/mcL (0.0-1.3); Monocytes % 6.2 %; Neutrophils # 9.5 K/mcL (1.6-8.9); Nucleated Red Blood Cells 0.2 /100 WBC (0); Platelet Count 391 K/mcL (140-400); Red Cell Distribution Width 16.1 % (11.5-14.5); Segmented Neutrophils % 81.1 %
[2017-06-22 11:00] LABS: Albumin 4.1 g/dL (3.5-5.7); Albumin/Globulin Ratio 1.1 (1.1-2.2); Bilirubin,Total 1.4 mg/dL (0.3-1.0); Calcium 10.1 mg/dL (8.6-10.3); Globulin 3.7 g/dL (2.4-3.5); Potassium 4.1 mEq/L (3.5-5.1); Total Protein 7.8 g/dL (6.4-8.9)
--- NOTE | 2017-06-22 11:12 | Cardiology Progress Note ---
Date of Encounter: 06/22/17 Time of Encounter: 09:30 Assessment and Plan (1) Acute exacerbation of CHF (congestive heart failure) Current Visit: Yes Status: Acute Per Cardiology: History of mild ischemic cardiomyopathy. Last echo 12/2015 EF 35-40%. Current echo: Impressions: LVEF 35-40%. Global and regional LV systolic dysfunction. Definity echo contrast was used. There is no LV thrombus. RV is mildly dilated with low normal function. Mildly dilated left ventricle. Mild-moderate mitral regurgitation. Mild-moderate tricuspid regurgitation. Mild pulmonary hypertension. BNP only 438. On strict I and O, 1.5 L fluid restriction, bilateral ASHLEE hose. Patient reports recent increased thirst and fluid intake, however baseline weight has been stable around 207 pounds. On IV Lasix 40 mg twice a day. Net I& O = -2275ml. Continue with diuresis, monitor kidney function closely. Will schedule f/u as outpatient for eval for potential need for ICD if EF remains low. Discussed with primary service, will s/o, reconsult PRN, f/u arranged. All questions answered. Qualifiers: Congestive heart failure type: systolic Qualified Code(s): I50.23 - Acute on chronic systolic (congestive) heart failure (2) Elevated troponin I measurement Current Visit: Yes Status: Acute Per Cardiology: Troponin is mildly elevated with peak of 0.12. Currently chest pain-free. Suspect demand ischemia in setting of acute systolic CHF on chronic CHF and known chronic CKD. (3) CAD (coronary artery disease) Current Visit: Yes Status: Chronic Per Cardiology: Known history of CAD with last heart catheterization January 2016 with drug- eluting stent to proximal circumflex 90% lesion and mid circumflex 90% lesion. Underwent PTCA for OM1 90% lesion with final stenosis of 85%-- noted to be jailed lesion. On BB, statin, asa. Discussed with Dr. Mcginnis and Dr. Prabhakar, no further ischemic eval warranted at this time. Imdur has been increased. Qualifiers: Coronary Disease-Associated Artery/Lesion type: samish artery Hoh vs. transplanted heart: samish heart Associated angina: without angina Qualified Code(s): I25.10 - Atherosclerotic heart disease of samish coronary artery without angina pectoris (4) Afib Current Visit: Yes Status: Chronic Per Cardiology: Known history of atrial fibrillation. Remains rate controlled. Anticoagulated with Coumadin followed by outside facility. Qualifiers: Atrial fibrillation type: chronic Qualified Code(s): I48.2 - Chronic atrial fibrillation (5) Supratherapeutic INR Current Visit: Yes Status: Acute Per Cardiology: Presented with supratherapeutic INR. Currently on hold, INR now 4.3. Denies any active bleeding or blood loss. Monitor cautiously. (6) CKD (chronic kidney disease) Current Visit: No Status: Chronic Per Cardiology: Known history of CKD. Kidney function currently around baseline. Monitor closely with diuresis. Qualifiers: Chronic kidney disease stage: stage 3 (moderate) Qualified Code(s): N18.3 - Chronic kidney disease, stage 3 (moderate) Discussion w patient/family: The assessment and plan as outlined above was discussed with the patient who expressed understanding and agreement. All questions were answered. Thank you for involving us in the care of your patient. Please call with any questions. Subjective Principal diagnosis: CHF Interval history: Patient denies any chest pain. Reports shortness of breath and edema have improved. Denies any new concerns or complaints. Objective Vital Signs, Last 4 Hours Temp Pulse Resp BP Pulse Ox 06/22/17 07:45 97.8 F 79 14 166/87 96 General: Conversant HEENT: Atraumatic, Normocephaly Cardiac: No Murmur, Other (Irregularly irregular) Lungs: Other (Patient is to bilateral bases) Neuro: Alert and responsive, No focal deficits noted Abdomen: Other (Lightly distended) Skin: No rashes noted on visualized skin Extremities: Other (+1 pitting edema, R>L) Results 06/22/17 10:28 06/22/17 10:28 Lab Results Laboratory Tests 06/21/17 06/22/17 06/22/17 16:33 05:05 10:28 INR 4.3 Creatinine 1.67 H Est GFR (Non-Af Amer) 41 L B-Natriuretic Peptide 438 H Impressions Echocardiogram 06/20/17 20:38 Impressions: LVEF 35-40%. Global and regional LV systolic dysfunction. Definity echo contrast was used. There is no LV thrombus. RV is mildly dilated with low normal function. Mildly dilated left ventricle. Mild-moderate mitral regurgitation. Mild-moderate tricuspid regurgitation. Mild pulmonary hypertension. Left Ventricular Wall Motion: Rest Echo Findings The apex, apical inferior, mid inferior, basal inferior, apical anterior, mid anterior, basal anterior, apical septal, mid inferior septal, basal inferior septal, apical lateral, mid anterior lateral, basal anterior lateral, mid anterior septal, mid inferior lateral, basal anterior septal and basal inferior lateral galdamez were hypokinetic. Findings: Study Quality * Technically adequate exam. ECG Findings * Atrial fibrillation. Left Ventricle * LVEF 35-40%. * Possibly mild increase in LV wall thickness. * Definity echo contrast was used. * There is no LV thrombus. * Mildly dilated left ventricle. Right Ventricle * RV is mildly dilated with low normal function. Left Atrium * Moderately dilated left atrium. Right Atrium * Moderately dilated right atrium. Aortic Valve * No aortic regurgitation. * Trileaflet aortic valve. * No aortic stenosis. Mitral Valve * Normal mitral valve structure. * No mitral stenosis. * Mild mitral annular calcification * Mild-moderate mitral regurgitation. Tricuspid Valve * Normal tricuspid valve structure. * Mild-moderate tricuspid regurgitation. * Estimated RA pressure is 8 mmHg. * Estimated RVSP is 42 mmHg. * Mild pulmonary hypertension. Pulmonic Valve * Pulmonic valve not well visualized. * No pulmonic regurgitation. * No pulmonic stenosis. Pulmonary Artery * Pulmonary artery not well visualized. Aorta * Normally sized aortic root. * Ascending aorta not well visualized. Pericardium * There is no pericardial effusion present. Interatrial Septum * No evidence of PFO by color Doppler. IVC * The IVC is dilated. * > 50% respiratory change Intake & Output 06/19/17 06/20/17 06/21/17 06/22/17 23:59 23:59 23:59 23:59 Intake Total 520 / 520 0 / 0 Output Total 2495 / 2495 300 / 300 Balance -1974 / -1975 -300 / -300 Weight 92.079 kg 92.4 kg 91 kg Active Medications Acetaminophen (Tylenol) 650 mg PO Q6HR PRN PRN Reason: Pain Stop: 12/21/17 13:55 Last Admin: 06/21/17 14:27 Dose: 650 mg Hydrocodone Bitart/Acetaminophen (Arthur 5-325 Mg) 1 tab PO Q6HR PRN PRN Reason: Moderate Pain Stop: 12/21/17 15:54 Last Admin: 06/22/17 04:06 Dose: 1 tab Amlodipine Besylate (Norvasc) 10 mg PO DAILY [facility] Stop: 12/21/17 09:01 Last Admin: 06/22/17 09:45 Dose: 10 mg Aspirin (Aspirin Ec) 81 mg PO DAILY [facility] Stop: 12/21/17 09:01 Last Admin: 06/22/17 09:45 Dose: 81 mg Atorvastatin Calcium (Lipitor) 40 mg PO HS [facility] Stop: 12/20/17 21:01 Last Admin: 06/21/17 21:53 Dose: 40 mg Dextrose/Water (Dextrose 50% (Syg)) 25 ml IVP AD PRN PRN Reason: Hypoglycemia Stop: 12/20/17 20:59 Furosemide (Lasix) 40 mg IVP BIDDIURETIC [facility] Stop: 12/20/17 21:01 Last Admin: 06/22/17 09:45 Dose: 40 mg Glucagon (Glucagen) 1 mg IM ONCE PRN PRN Reason: Hypoglycemia Stop: 12/20/17 20:59 Glucose (Gluctose) 15 gm PO ONCE PRN PRN Reason: Hypoglycemia Stop: 12/20/17 20:59 Glucose (Gluctose) 30 gm PO ONCE PRN PRN Reason: Hypoglycemia Stop: 12/20/17 20:59 Dextrose (Dextrose 5%) 1,000 mls @ 100 mls/hr IVC .Q10H PRN PRN Reason: HYPOGLYCEMIA Stop: 12/20/17 20:59 [place]ulin [place] (Leve[facility]) [facility] [facility] [place]: 12/21/17 09:01 Last Admin: 06/22/17 09:51 Dose: 36 unit Insulin Human Lispro (Humalog) 0 units SQ TIDAC [facility] PRN Reason: Protocol Stop: 12/21/17 07:31 Last Admin: 06/22/17 09:47 Dose: Not Given Insulin Human Lispro (Humalog) 0 units SQ [facility] PRN Reason: Protocol Stop: 12/20/17 21:01 Last Admin: 06/21/17 21:54 Dose: Not Given Isosorbide Mononitrate (Imdur) 60 mg PO DAILY [facility] Stop: 12/22/17 09:01 Last Admin: 06/22/17 09:45 Dose: 60 mg Magnesium Oxide (Mag-Ox) 400 mg PO TID [facility] PRN Reason: Protocol Stop: 12/20/17 21:01 Last Admin: 06/22/17 09:45 Dose: 400 mg Metoprolol Succinate (Toprol Xl) 100 mg PO DAILY [facility] Stop: 12/21/17 09:01 Last Admin: 06/22/17 09:45 Dose: 100 mg Naloxone HCl (Narcan) 0.4 mg IVP Q2MIN PRN PRN Reason: Opioid Reversal Stop: 12/20/17 20:17 Nitroglycerin (Nitroglycerin) 0.4 mg SL Q5MIN PRN PRN Reason: Chest Pain Stop: 12/20/17 14:41 Last Admin: 06/20/17 15:54 Dose: 0.4 mg Omeprazole (Prilosec) 20 mg PO BIDAC [facility] PRN Reason: Protocol Stop: 12/21/17 07:31 Last Admin: 06/22/17 09:45 Dose: 20 mg Ondansetron HCl (Zofran) 4 mg IVP Q8HR PRN PRN Reason: Nausea And Vomiting Stop: 12/20/17 20:17 Pharmacy Profile Note (Patient Taking Own Medication) 0 each PO BID [facility] Stop: 12/20/17 21:01 Last Admin: 06/22/17 09:46 Dose: Not Given Warfarin Sodium (Coumadin Perpt) 0 each PO DAILY@1800 PRN PRN Reason: SEE COMMENTS Stop: 12/21/17 18:01 - Imaging and Cardiology Echo: report reviewed - EKG Interpretation EKG results cardiology: other (Shows average heart rate the past 12 hours the 8 , atrial fibrillation, one 6 beat run NSVT; currently A. fib in the 70s to 90s) - VTE Documentation of Mechanical Device: Graduated compression elastic hosiery Consult Discharge Plan - Plan [facility]errals: [facility] [Primary Care Provider[facility] -
--- NOTE | 2017-06-22 11:28 | Internal Med Progress Note ---
<Perry Blount - Last Filed: 06/22/17 11:32> Date of Encounter: 06/22/17 Time of Encounter: 11:32 - Assessment and plan (1) Acute exacerbation of CHF (congestive heart failure) Current Visit: Yes Status: Acute Assessment and plan: Pt admitted for acute CHF. currently patient is stable. no crackles, pedal edema. able to lay flat, denies PND. denies tightness in chest - currently he is negative fluid balance. continue to diurese - strict I/O - cards following - will continue to monitor most likely for 1 more day. Qualifiers: Congestive heart failure type: systolic Qualified Code(s): I50.23 - Acute on chronic systolic (congestive) heart failure (2) Afib Current Visit: Yes Status: Chronic Assessment and plan: continues to be in Afib. Rate controlled. Continue home meds. Qualifiers: Atrial fibrillation type: chronic Qualified Code(s): I48.2 - Chronic atrial fibrillation (3) CKD (chronic kidney disease) Current Visit: No Status: Chronic Assessment and plan: Chronic issue Qualifiers: Chronic kidney disease stage: stage 3 (moderate) Qualified Code(s): N18.3 - Chronic kidney disease, stage 3 (moderate) (4) Diabetes mellitus Current Visit: Yes Status: Chronic Assessment and plan: Monitoring blood sugars and coverage. 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 Continue current meds. Qualifiers: Hypertension type: essential hypertension Qualified Code(s): I10 - Essential (primary) hypertension (6) Supratherapeutic INR Current Visit: Yes Status: Acute Assessment and plan: Following. - patient recommended to have follow up with coumadin clinic within 5 days of discharge to check INR - Subjective Interval history: Mr Nowak is a 71 yo M here for acute exacerbation of CHF and elevated trops. Patient reports that his breathing has improved since yesterday, and he no longer has chest tightness. Denies f/c, n/v. - Constitutional Vitals: Temp Pulse Resp BP Pulse Ox 97.8 F 79 14 166/87 96 06/22/17 07:45 06/22/17 07:45 06/22/17 07:45 06/22/17 07:45 06/22/17 07:45 General appearance: Present: cooperative, A&O X 3, pleasant, obese, answers questions appropriately - Cardiovascular Cardiovascular exam: Present: irregular rhythm, JVD. Absent: bradycardia, diastolic murmur, distant heart sounds, RRR, rubs - GI/Abdominal GI/Abdominal exam: Present: normal bowel sounds, soft. Absent: rebound, rigid - Extremities Exam Additional comments: no pedal edema bilaterally - Psychiatric Psychiatric exam: Present: normal affect, normal mood Internal Medicine: Result - Labs CBC & Chem 7: 06/22/17 10:28 06/22/17 10:28 Labs: Short CBC 06/22/17 Range/Units 10:28 WBC 11.8 H (4.3-11.1) K/mcL Hgb 11.8 L D (12.9-16.9) g/dL Hct 39.4 (37.5-50.1) % Plt Count 391 (140-400) K/mcL Neutrophils # 9.5 H (1.6-8.9) K/mcL BMP 06/22/17 10:28 Sodium 140 Potassium 4.1 Chloride 99 Carbon Dioxide 30 H BUN 42 H Creatinine 1.67 H Glucose 226 H Calcium 10.1 Cardiac Enzymes 06/21/17 Range/Units 11:45 Troponin I 0.07 H* (< 0.04) ng/mL Liver Function 06/22/17 Range/Units 10:28 Total Bilirubin 1.4 H (0.3-1.0) mg/dL AST 21 (13-39) Units/L ALT 32 (7-52) Units/L Alkaline Phosphatase 56 (34-104) Units/L Albumin 4.1 (3.5-5.7) g/dL - ABG Interpretation ABG results: PT/INR, D-dimer PT 48.1 Seconds (9.4-12.1) H* 06/22/17 05:05 - Impressions Impressions Echocardiogram 06/20/17 20:38 Impressions: LVEF 35-40%. Global and regional LV systolic dysfunction. Definity echo contrast was used. There is no LV thrombus. RV is mildly dilated with low normal function. Mildly dilated left ventricle. Mild-moderate mitral regurgitation. Mild-moderate tricuspid regurgitation. Mild pulmonary hypertension. Left Ventricular Wall Motion: Rest Echo Findings The apex, apical inferior, mid inferior, basal inferior, apical anterior, mid anterior, basal anterior, apical septal, mid inferior septal, basal inferior septal, apical lateral, mid anterior lateral, basal anterior lateral, mid anterior septal, mid inferior lateral, basal anterior septal and basal inferior lateral galdamez were hypokinetic. Findings: Study Quality * Technically adequate exam. ECG Findings * Atrial fibrillation. Left Ventricle * LVEF 35-40%. * Possibly mild increase in LV wall thickness. * Definity echo contrast was used. * There is no LV thrombus. * Mildly dilated left ventricle. Right Ventricle * RV is mildly dilated with low normal function. Left Atrium * Moderately dilated left atrium. Right Atrium * Moderately dilated right atrium. Aortic Valve * No aortic regurgitation. * Trileaflet aortic valve. * No aortic stenosis. Mitral Valve * Normal mitral valve structure. * No mitral stenosis. * Mild mitral annular calcification * Mild-moderate mitral regurgitation. Tricuspid Valve * Normal tricuspid valve structure. * Mild-moderate tricuspid regurgitation. * Estimated RA pressure is 8 mmHg. * Estimated RVSP is 42 mmHg. * Mild pulmonary hypertension. Pulmonic Valve * Pulmonic valve not well visualized. * No pulmonic regurgitation. * No pulmonic stenosis. Pulmonary Artery * Pulmonary artery not well visualized. Aorta * Normally sized aortic root. * Ascending aorta not well visualized. Pericardium * There is no pericardial effusion present. Interatrial Septum * No evidence of PFO by color Doppler. IVC * The IVC is dilated. * > 50% respiratory change - VTE Documentation of Mechanical Device: Graduated compression elastic hosiery Consult Discharge Plan - Plan [facility]errals: [facility] [Primary Care Provider[facility] - <Sudheer Dyson - Last Filed: 06/22/17 19:26> Date of Encounter: 06/22/17 - Assessment and plan (1) Acute exacerbation of CHF (congestive heart failure) Current Visit: Yes Status: Acute Qualifiers: Congestive heart failure type: systolic Qualified Code(s): I50.23 - Acute on chronic systolic (congestive) heart failure (2) Afib Current Visit: Yes Status: Chronic Qualifiers: Atrial fibrillation type: chronic Qualified Code(s): I48.2 - Chronic atrial fibrillation (3) Diabetes mellitus Current Visit: Yes Status: Chronic Qualifiers: Diabetes mellitus type: type 2 Diabetes mellitus complication status: with circulatory complication Diabetes mellitus complication detail: with other circulatory complications 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 Qualified Code(s): E11.59 - Type 2 diabetes mellitus with other circulatory complications (4) Hypertension Current Visit: No Status: Chronic Qualifiers: Hypertension type: essential hypertension Qualified Code(s): I10 - Essential (primary) hypertension (5) CKD (chronic kidney disease) Current Visit: No Status: Chronic Qualifiers: Chronic kidney disease stage: stage 3 (moderate) Qualified Code(s): N18.3 - Chronic kidney disease, stage 3 (moderate) (6) Supratherapeutic INR Current Visit: Yes Status: Acute - Constitutional Vitals: Temp Pulse Resp BP Pulse Ox 98.0 F 95 15 110/51 95 06/22/17 14:28 06/22/17 14:28 06/22/17 14:28 06/22/17 14:28 06/22/17 14:28 Internal Medicine: Result - Labs CBC & Chem 7: 06/22/17 10:28 06/22/17 10:28 Labs: Short CBC 06/22/17 Range/Units 10:28 WBC 11.8 H (4.3-11.1) K/mcL Hgb 11.8 L D (12.9-16.9) g/dL Hct 39.4 (37.5-50.1) % Plt Count 391 (140-400) K/mcL Neutrophils # 9.5 H (1.6-8.9) K/mcL BMP 06/22/17 10:28 Sodium 140 Potassium 4.1 Chloride 99 Carbon Dioxide 30 H BUN 42 H Creatinine 1.67 H Glucose 226 H Calcium 10.1 Liver Function 06/22/17 Range/Units 10:28 Total Bilirubin 1.4 H (0.3-1.0) mg/dL AST 21 (13-39) Units/L ALT 32 (7-52) Units/L Alkaline Phosphatase 56 (34-104) Units/L Albumin 4.1 (3.5-5.7) g/dL - ABG Interpretation ABG results: PT/INR, D-dimer PT 48.1 Seconds (9.4-12.1) H* 06/22/17 05:05 - Attending Attestation I examined this patient and my medical decision-making was reviewed with the Resident Physician on 06/22/17. I agree with the documented findings, disposition and treatment plan as described except to the extent set forth below. Mr Nowak is currently admitted for a fib and CHF. He remains moderate to high risk due to potential for worsening clinical status. Mr Nowak is feeling somewhat better today. No fever. Breathing slowly improving. No GI issues. Exam Alert. Comfortable Mucus membranes dry Heart irreg Lungs with scattered rales I/P 1 CHF 2. A fib Further diagnoses and plan as above Anticipate d/c tomorrow.
[2017-06-23] MEDS: *HR* HYDROcodone/Acet 5/325 mg TABLET PO PRN ×2 (06:06→13:26)
[2017-06-23 07:39] LABS: INR 3.4; Prothrombin Time 37.2 Seconds (9.4-12.1)
[2017-06-23 07:40] LABS: Calcium 9.5 mg/dL (8.6-10.3); Potassium 4.5 mEq/L (3.5-5.1)
[2017-06-23 07:41] VITALS: BP 152/81
[2017-06-23 08:05] LABS: Basophils % 0.9 %; Eosinophils % 4.2 %; Hematocrit 33.9 % (37.5-50.1); Immature Granulocytes % 0.4 % (0-4); Lymphocytes % 7.3 %; Mean Corpuscular HGB Conc 30.1 g/dL (31.6-35.5); Mean Corpuscular Hemoglobin 27.9 pg (28.0-33.3); Mean Corpuscular Volume 92.9 fL (83.0-100.0); Mean Platelet Volume 9.8 fL (9.4-12.4); Monocytes % 6.7 %; Platelet Count 378 K/mcL (140-400); Red Blood Count 3.65 M/mcL (4.19-5.50); Red Cell Distribution Width 15.9 % (11.5-14.5); Segmented Neutrophils % 80.5 %
[2017-06-23 08:06] LABS: Basophils # 0.1 K/mcL (0.0-0.2); Eosinophils # 0.4 K/mcL (0.0-0.6); Lymphocytes # 0.7 K/mcL (0.6-4.6); Monocytes # 0.6 K/mcL (0.0-1.3); Neutrophils # 7.5 K/mcL (1.6-8.9)
[2017-06-23 08:08] LABS: Hemoglobin 10.2 g/dL (12.9-16.9)
--- NOTE | 2017-06-23 09:06 | Discharge Summary ---
<Perry Blount - Last Filed: 06/23/17 08:48> Date of Encounter: 06/23/17 Time of Encounter: 08:49 - Discharge Diagnosis (1) Acute exacerbation of CHF (congestive heart failure) Priority: Primary Status: Acute Qualifiers: Congestive heart failure type: systolic Qualified Code(s): I50.23 - Acute on chronic systolic (congestive) heart failure (2) Afib Priority: Secondary Status: Chronic Qualifiers: Atrial fibrillation type: chronic Qualified Code(s): I48.2 - Chronic atrial fibrillation (3) CKD (chronic kidney disease) Priority: Secondary Status: Chronic Qualifiers: Chronic kidney disease stage: stage 3 (moderate) Qualified Code(s): N18.3 - Chronic kidney disease, stage 3 (moderate) (4) Diabetes mellitus Priority: Secondary Status: Chronic Qualifiers: Diabetes mellitus type: type 2 Diabetes mellitus complication status: with circulatory complication Diabetes mellitus complication detail: with other circulatory complications Diabetes mellitus nursing program director insulin use: unspecified senior care insulin use status Qualified Code(s): E11.59 - Type 2 diabetes mellitus with other circulatory complications (5) Hypertension Priority: Secondary Status: Chronic Qualifiers: Hypertension type: essential hypertension Qualified Code(s): I10 - Essential (primary) hypertension (6) Supratherapeutic INR Priority: Secondary Status: Acute - Discharge Medications Home Medications: Aspirin Enteric Coated [Aspirin EC] 81 mg PO DAILY 05/21/15 [History] Metoprolol XL (24 HR) Succ [Toprol XL] 100 mg PO DAILY 05/21/15 [History] Isosorbide MONOnitrate (24 HR) [Imdur] 30 mg PO DAILY #30 tab.er.24h 05/22/15 [ Rx] Amlodipine Besylate 10 mg PO DAILY 01/28/16 [History] Atorvastatin [Lipitor] 40 mg PO HS 01/28/16 [History] Magnesium Oxide [Mag-Ox] 400 mg PO TID 01/28/16 [History] [place]-3/Dha/Epa/Fish Oil [Fish Oil 1,000 mg Softgel] 2 cap PO BID 01/28/16 [ History] Omeprazole [PriLOSEC] 20 mg PO BIDAC 01/28/16 [History] Saxagliptin HCl [Onglyza] 5 mg PO DAILY 01/28/16 [History] glipiZIDE [Glipizide] 20 mg PO BID 01/28/16 [History] Furosemide [Lasix] 40 mg PO BID #60 tablet 01/31/16 [Rx] Warfarin [Coumadin] 2 mg PO SUTUWEFRSA 02/12/16 [History] Warfarin [Coumadin] 4 mg PO MOTH 02/12/16 [History] Insulin Glargine [Lantus] 36 unit SQ QAM 06/20/17 [History] Sour [place] Extract [Tart [place] Extract] 1,000 mg PO DAILY 06/20/17 [History] Allergies/Adverse Reactions: 3 Allergy/AdvReac Type Severity Reaction Status Date / Time No Known Allergies Allergy Verified 05/21/15 16:32 Procedures/tests Complete & Pending: Procedures Performed prior 72 hours Category Date Time Status EV echocardiogram w enhance Routine Y 06/20/17 20:38 Completed Date of admission: 06/20/17 20:17 Primary care physician: PCP [facility] Consults: 06/20/17 20:36 Consult to Cardiology [CONS] Routine Comment: Consulting Provider: [facility] [place] Reason for Consult: Patient discussed w/Dr. Mcginnis while in ED w/ recommendation for heparin only if INR drops below 2, otherwise recommend symptomatically controlled with nitroglycerin, AV node blockers, and morphine as needed. Will see in a.m. once patient has been admitted. Call Completed: Yes - Patient Status Disposition: Home Health Service Condition: Fair Functional capacity at discharge: independent ambulation Overall status at discharge: patient is back to baseline - Discharge Instructions Instructions: Heart Failure (DC), Atrial Fibrillation (DC) Follow Up With: [facility],PCP [Primary Care Provider] - 06/30/17 9:00 am Additional Instructions: Please wear your home Oxygen @ 3L , continuously. We sent info to [facility] to get this set up. Make sure at your followup appt that this is set up. Please take half dose of your coumadin tonight. 1mg. Please go into the lab with your standing INR order tomorrow or so they know whether to keep you on same dose or change. - Diet and Activity Activity: increase activity as tolerated Hospital course: Mr. Nowak is a 71 year old male presented to [facility] with chest tightness, and progressing SOB and transferred to [place] due to suspected exacerbation of HF. In the ED, patient was started on Morphine, nitro, ASA, lipitor, and cardiology was consulted. Patient had elevated trops x2, and BNP 438. Echo was performed and read as LVEF 35-40%. CXR - suspected central pulmonary vascular congestion. Patient clinically improved throughout hospitalization. Patient was continued on lasix, and was euvolemic during stay. Patient was discharged on home meds on day 3. Patient to have follow up with PCP within 1 week and setup for home health. Patient remained in afib throughout hospitalization. patient is known as chronic afib. Patient's INR was found to be supratherapeutic at 5.3 on admission. Warfarin was held during hospitalization. On day of discharge INR 3.4. Patient recommended to follow up with coumadin clinic within 5 days of discharge. Time spent discussing smoking cessation with patient: more than 10 minutes - Time Spent with Patient Total time spent providing and/or coordinating discharge services: Greater than 30 minutes - Constitutional Vitals: Temp Pulse Resp BP Pulse Ox 97.8 F 103 14 152/81 94 06/23/17 07:37 06/23/17 07:37 06/23/17 07:37 06/23/17 07:37 06/23/17 07:37 General appearance: Present: cooperative, A&O X 3, pleasant, obese, answers questions appropriately - Respiratory Respiratory exam: Present: CTAB. Absent: accessory muscle use, rales, rhonchi, wheezes - Cardiovascular Cardiovascular exam: Present: irregular rhythm - GI/Abdominal GI/Abdominal exam: Present: normal bowel sounds, soft, no peritoneal signs. Absent: distended, tenderness - Extremities Exam Extremities exam: Present: warm, radial pulses palpable and symmetrical. Absent : calf tenderness, cyanotic, pedal edema - Psychiatric Psychiatric exam: Present: normal affect, normal mood - VTE Documentation of Mechanical Device: Graduated compression elastic hosiery <Sudheer Dyson - Last Filed: 06/23/17 18:46> Date of Encounter: 06/23/17 - Discharge Diagnosis (1) Acute exacerbation of CHF (congestive heart failure) Status: Acute Comments: Not on SOBIA/ARB due to renal function Qualifiers: Congestive heart failure type: systolic Qualified Code(s): I50.23 - Acute on chronic systolic (congestive) heart failure (2) Afib Status: Chronic Qualifiers: Atrial fibrillation type: chronic Qualified Code(s): I48.2 - Chronic atrial fibrillation (3) Diabetes mellitus Status: Chronic Qualifiers: Diabetes mellitus type: type 2 Diabetes mellitus complication status: with circulatory complication Diabetes mellitus complication detail: with other circulatory complications Diabetes mellitus nursing program director insulin use: without nursing program director use Qualified Code(s): E11.59 - Type 2 diabetes mellitus with other circulatory complications (4) Hypertension Status: Chronic Qualifiers: Hypertension type: essential hypertension Qualified Code(s): I10 - Essential (primary) hypertension (5) CKD (chronic kidney disease) Status: Chronic Qualifiers: Chronic kidney disease stage: stage 3 (moderate) Qualified Code(s): N18.3 - Chronic kidney disease, stage 3 (moderate) (6) Supratherapeutic INR Status: Acute Procedures/tests Complete & Pending: Procedures Performed prior 72 hours Category Date Time Status EV echocardiogram w enhance Routine Y 06/20/17 20:38 Completed Date of admission: 06/20/17 20:17 Primary care physician: PCP [facility] Consults: 06/20/17 20:36 Consult to Cardiology [CONS] Routine Comment: Consulting Provider: [facility] Reason for Consult: Patient discussed w/Dr. Mcginnis while in ED w/ recommendation for heparin only if INR drops below 2, otherwise recommend symptomatically controlled with nitroglycerin, AV node blockers, and morphine as needed. Will see in a.m. once patient has been admitted. Call Completed: Yes Hospital course: Mr. Nowak is a 71 year old male - Time Spent with Patient Total time spent providing and/or coordinating discharge services: 38min - Constitutional Vitals: Temp Pulse Resp BP Pulse Ox 97.8 F 103 14 152/81 94 06/23/17 07:37 06/23/17 07:37 06/23/17 07:37 06/23/17 07:37 06/23/17 07:37 - Attending Attestation I examined this patient and my medical decision-making was reviewed with the Resident Physician on 06/23/17. I agree with the documented findings, disposition and treatment plan as described except to the extent set forth below. Mr. Nowak has been admitted due to acute exac CHF. He is now afebrile and at baseline respiratory status. He is ready for discharge home. Exam Alert. Comfortable Mucus membranes dry Heart not tachy Lungs clearer Plan D/C home today Follow up with PCP
--- NOTE | 2017-06-23 09:10 | Physician Discharge Referral ---
<Perry Blount - Last Filed: 06/23/17 09:09> Home Health/Hosp Referral Info Transfer to: Home Health Provider in Charge Post Discharge: PCP ([facility] provider) - Diagnosis (1) Acute exacerbation of CHF (congestive heart failure) Status: Acute (2) Afib Status: Chronic (3) CKD (chronic kidney disease) Status: Chronic (4) Diabetes mellitus Status: Chronic (5) Hypertension Status: Chronic (6) Supratherapeutic INR Status: Acute - Respiratory Orders Smoking Cessation: Smoking cessation has been advised. For more information, call the [place] Tobacco Quit Line at 2-613-LPJK-NOW. - Transfer Medications Home Medications: Aspirin Enteric Coated [Aspirin EC] 81 mg PO DAILY 05/21/15 [History] Metoprolol XL (24 HR) Succ [Toprol XL] 100 mg PO DAILY 05/21/15 [History] Isosorbide MONOnitrate (24 HR) [Imdur] 30 mg PO DAILY #30 tab.er.24h 05/22/15 [ Rx] Amlodipine Besylate 10 mg PO DAILY 01/28/16 [History] Atorvastatin [Lipitor] 40 mg PO HS 01/28/16 [History] Magnesium Oxide [Mag-Ox] 400 mg PO TID 01/28/16 [History] [place]-3/Dha/Epa/Fish Oil [Fish Oil 1,000 mg Softgel] 2 cap PO BID 01/28/16 [ History] Omeprazole [PriLOSEC] 20 mg PO BIDAC 01/28/16 [History] Saxagliptin HCl [Onglyza] 5 mg PO DAILY 01/28/16 [History] glipiZIDE [Glipizide] 20 mg PO BID 01/28/16 [History] Furosemide [Lasix] 40 mg PO BID #60 tablet 01/31/16 [Rx] Warfarin [Coumadin] 2 mg PO SUTUWEFRSA 02/12/16 [History] Warfarin [Coumadin] 4 mg PO MOTH 02/12/16 [History] Insulin Glargine [Lantus] 36 unit SQ QAM 06/20/17 [History] Sour [place] Extract [Tart [place] Extract] 1,000 mg PO DAILY 06/20/17 [History] Allergies/Adverse Reactions: 3 Allergy/AdvReac Type Severity Reaction Status Date / Time No Known Allergies Allergy Verified 05/21/15 16:32 Certification: Further, I certify that my clinical findings support that this patient is homebound (i.e. absences from home require considerable and taxing effort and are for medical reasons or latter day services or infrequently or short duration when for other reasons) because: Homebound Reason: Severity of cardiac or pulmonary status limits activity tolerance Attestation: My signature below is to certify that this patient is under my care and that I, or nurse practitioner, or a physician's neurosurgical physician assistant working with me, has a face-to -face encounter with this patient. <Sudheer Dyson - Last Filed: 06/23/17 12:23> - Diagnosis (1) Acute exacerbation of CHF (congestive heart failure) Status: Acute (2) Afib Status: Chronic (3) Diabetes mellitus Status: Chronic (4) Hypertension Status: Chronic (5) CKD (chronic kidney disease) Status: Chronic (6) Supratherapeutic INR Status: Acute - Respiratory Orders Oxygen / L per min (Maintain saturation greater than 90%) Smoking Cessation: Smoking cessation has been advised. For more information, call the [place] Tobacco Quit Line at 5-358-TPMK-NOW. - Diet/Nutrition Diet/Nutrition Orders: Cardiac, No Concentrated Sweets - Activity Activity Orders: Up ad jason, Walker - Services Needed Following services are medically necessary services: Nursing, Physical Therapy, Occupational Therapy Certification: Further, I certify that my clinical findings support that this patient is homebound (i.e. absences from home require considerable and taxing effort and are for medical reasons or latter day services or infrequently or short duration when for other reasons) because: Homebound Reason: Patient requires assistance of a person or device to safely leave home Attestation: My signature below is to certify that this patient is under my care and that I, or nurse practitioner, or a physician's neurosurgical physician assistant working with me, has a face-to -face encounter with this patient.
[2017-06-23] MEDS: Furosemide 40 MG/4 ML VIAL IVP SCH (10:19)
[2017-06-23] MEDS: amLODIPine 5 MG TABLET PO SCH (10:19)
[2017-06-23] MEDS: Isosorbide MONOnitrate (24 HR) 30 MG TAB.ER.24H PO SCH (10:19)
[2017-06-23] MEDS: Aspirin Enteric Coated 81 MG Tablet PO SCH (10:19)
[2017-06-23] MEDS: Magnesium Oxide 400 MG TABLET PO SCH (10:19)
[2017-06-23] MEDS: Metoprolol XL (24 HR) Succ 50 MG TAB.ER.24H PO SCH (10:19)
[2017-06-23] MEDS: Insulin LISPRO 300 UNITS/3 ML VIAL SQ SCH (10:20)
[2017-06-23] MEDS: Insulin DETEMIR 100 UNIT/ML X5UNITS SQ SCH (10:21)
--- NOTE | 2017-06-24 07:51 | Electrocardiograph Report ---
[place] [id number] Test Date: 2017-06-20 Pat Name: Toy Nowak Department: 102 Room: [id number] Gender: M Call Or Contact Centre Manager: Nelly : 1945 Requested By: Ferny Pino Order Number: [id number] Reading MD: Bowen Mahmood MD Measurements Intervals [place] Rate: 98 P: [place]: 0 QRS: -2 QRSD: 114 T: 108 QT: 375 QTc: 430 Interpretive Statements ATRIAL FIBRILLATION WITH ABERRANT CONDUCTION OR VENTRICULAR PREMATURE COMPLEXES MINIMAL VOLTAGE CRITERIA FOR LVH, CONSIDER NORMAL VARIANT INFERIOR MYOCARDIAL INFARCTION, PROBABLY OLD Electronically Signed On 06-24-2017 5:41:42 EST by Bowen Mahmood MD
== END 2017-06-23 14:06 | disposition home health service (06) | DRG 291 ==
LOC: EMEROO 14:19 → 2NENU 14:19
PROVIDERS: ADMIT Hospitalist; ATTEND Internal Medicine

== ENCOUNTER 2019-05-31 16:49 | Observation (INO) ==
[2019-05-31] MEDS ORDERED: Naloxone 0.4 MG/ML INJ IVP PRN (18:44)
[2019-05-31] MEDS ORDERED: Furosemide 40 MG/4 ML VIAL IVP ONE (19:03)
[2019-05-31 19:45] LABS: Calcium 9.8 mg/dL (8.6-10.3); Potassium 4.2 mEq/L (3.5-5.1)
[2019-05-31] MEDS ORDERED: [UNRECOGNIZED DRUG - OTHER] PO SCH (21:00)
[2019-05-31] MEDS ORDERED: NON-FORMULARY MEDICATION 1 EACH EACH (Omega-3/Dha/Epa/Fish Oil [Fish Oil 1,000 Mg Softgel] PO SCH (21:00)
[2019-05-31] MEDS: Insulin DETEMIR 100 UNIT/ML X5UNITS SQ SCH (21:50)
[2019-05-31] MEDS: Fluticasone Propionate Nasal 50 MCG/SPRAY BOTTLE NS SCH (23:22)
[2019-06-01] MEDS: hydrALAZINE 25 MG TABLET PO SCH ×3 (00:46→16:35)
[2019-06-01] MEDS: Loratadine 10 MG TABLET PO SCH (08:38)
[2019-06-01] MEDS: Metoprolol XL (24 HR) Succ 50 MG TAB.ER.24H PO SCH (08:38)
[2019-06-01] MEDS: Cholecalciferol (D-3) 1,000 UNIT (25MCG) TABLET PO SCH (08:38)
[2019-06-01] MEDS: Aspirin Enteric Coated 81 MG Tablet PO SCH (08:39)
[2019-06-01] MEDS: Isosorbide MONOnitrate (24 HR) 30 MG TAB.ER.24H PO SCH (08:39)
[2019-06-01] MEDS: Fluticasone Propionate Nasal 50 MCG/SPRAY BOTTLE NS SCH (08:42)
[2019-06-01] MEDS ORDERED: Ipratropium/Albuterol Neb 3 ML IH ONE (13:03)
[2019-06-01 17:12] LABS: Basophils # 0.1 K/mcL (0.0-0.2); Eosinophils # 0.3 K/mcL (0.0-0.6); Eosinophils % 3.4 %; Hematocrit 40.4 % (37.5-50.1); Hemoglobin 13.6 g/dL (12.9-16.9); Immature Granulocytes % 0.2 % (0-4); Immature Platelets 1.8 % (1.1-6.1); Lymphocytes # 0.8 K/mcL (0.6-4.6); Lymphocytes % 9.5 %; Mean Corpuscular HGB Conc 33.7 g/dL (31.6-35.5); Mean Corpuscular Hemoglobin 34.8 pg (28.0-33.3); Mean Corpuscular Volume 103.3 fL (83.0-100.0); Mean Platelet Volume 10.1 fL (9.4-12.4); Monocytes # 1.2 K/mcL (0.0-1.3); Monocytes % 14.1 %; Neutrophils # 5.9 K/mcL (1.6-8.9); Platelet Count 184 K/mcL (140-400); Red Blood Count 3.91 M/mcL (4.19-5.50); Red Cell Distribution Width 14.6 % (11.5-14.5); Segmented Neutrophils % 71.8 %; White Blood Count 8.2 K/mcL (4.3-11.1)
[2019-06-01 17:24] LABS: INR 1.7; Prothrombin Time 19.5 Seconds (9.4-12.1)
[2019-06-01 17:40] LABS: Calcium 9.5 mg/dL (8.6-10.3); Potassium 4.9 mEq/L (3.5-5.1)
[2019-06-01] MEDS ORDERED: Warfarin perPT PO PRN (18:00)
[2019-06-01] MEDS ORDERED: *HR* Warfarin 1 MG TABLET PO ONE (18:00)
[2019-06-01] MEDS ORDERED: *HR* Warfarin 2.5 MG TABLET PO ONE (18:07)
[2019-06-01] MEDS: Insulin DETEMIR 100 UNIT/ML X5UNITS SQ SCH (20:24)
[2019-06-02 06:29] LABS: Basophils # 0.1 K/mcL (0.0-0.2); Eosinophils # 0.4 K/mcL (0.0-0.6); Eosinophils % 4.5 %; Hemoglobin 12.7 g/dL (12.9-16.9); Immature Granulocytes % 0.3 % (0-4); Lymphocytes # 0.7 K/mcL (0.6-4.6); Lymphocytes % 8.7 %; Mean Corpuscular HGB Conc 31.8 g/dL (31.6-35.5); Mean Corpuscular Hemoglobin 34.1 pg (28.0-33.3); Mean Corpuscular Volume 107.5 fL (83.0-100.0); Mean Platelet Volume 10.6 fL (9.4-12.4); Monocytes # 1.1 K/mcL (0.0-1.3); Monocytes % 14.2 %; Neutrophils # 5.5 K/mcL (1.6-8.9); Platelet Count 185 K/mcL (140-400); Red Blood Count 3.72 M/mcL (4.19-5.50); Red Cell Distribution Width 14.5 % (11.5-14.5); Segmented Neutrophils % 71.3 %; White Blood Count 7.7 K/mcL (4.3-11.1)
[2019-06-02 06:31] LABS: INR 1.6; Prothrombin Time 18.1 Seconds (9.4-12.1)
[2019-06-02 06:55] LABS: Calcium 9.1 mg/dL (8.6-10.3); Potassium 4.5 mEq/L (3.5-5.1)
[2019-06-02] MEDS: hydrALAZINE 25 MG TABLET PO SCH ×4 (08:22→23:27)
[2019-06-02] MEDS: Loratadine 10 MG TABLET PO SCH (08:22)
[2019-06-02] MEDS: Metoprolol XL (24 HR) Succ 50 MG TAB.ER.24H PO SCH (08:22)
[2019-06-02] MEDS: Aspirin Enteric Coated 81 MG Tablet PO SCH (08:22)
[2019-06-02] MEDS: Isosorbide MONOnitrate (24 HR) 30 MG TAB.ER.24H PO SCH (08:22)
[2019-06-02] MEDS: Cholecalciferol (D-3) 1,000 UNIT (25MCG) TABLET PO SCH (08:22)
[2019-06-02] MEDS: Fluticasone Propionate Nasal 50 MCG/SPRAY BOTTLE NS SCH (08:24)
[2019-06-02] MEDS ORDERED: *HR* Warfarin 2 MG TABLET PO SCH (09:00)
[2019-06-02 11:17] LABS: Bilirubin,Urine Negative (Negative); Blood,Urine Negative (Negative); Clarity,Urine Clear (Clear); Color,Urine Yellow (Yellow); Glucose,Urine (UA) Normal (Normal); Ketones,Urine Negative (Negative); Leukocyte Esterase,Urine Small (Negative); Nitrite,Urine Negative (Negative); Protein,Urine Trace mg/dL (Neg-Trace); Specific Gravity,Urine 1.022 (1.010-1.025); Urobilinogen,Urine Normal (Normal)
[2019-06-02 11:20] LABS: Bacteria,Urine None Seen per hpf (None-Few); Hyaline Casts,Urine None Seen per lpf (None-Few); Protein/Creatinine Ratio,Urine 0.19 mg/mg (0.00-0.20); RBC,Urine 0-3 per hpf (0-3); Sodium, Urine 41.8 mEq/L; Squamous Epithelial Cell,Urine Moderate per lpf (None-Few); WBC,Urine 0-3 per hpf (0-3)
[2019-06-02] MEDS ORDERED: Furosemide 40 MG/4 ML VIAL IVP ONE (14:51)
[2019-06-02] MEDS ORDERED: *HR* Warfarin 3 MG TABLET PO ONE (18:00)
[2019-06-02] MEDS: Insulin DETEMIR 100 UNIT/ML X5UNITS SQ SCH (20:26)
[2019-06-03 05:58] LABS: Basophils # 0.1 K/mcL (0.0-0.2); Basophils % 0.8 %; Eosinophils # 0.3 K/mcL (0.0-0.6); Eosinophils % 2.9 %; Hematocrit 41.4 % (37.5-50.1); Hemoglobin 13.3 g/dL (12.9-16.9); Immature Granulocytes % 0.3 % (0-4); Lymphocytes # 0.8 K/mcL (0.6-4.6); Lymphocytes % 8.7 %; Mean Corpuscular HGB Conc 32.1 g/dL (31.6-35.5); Mean Corpuscular Hemoglobin 34.2 pg (28.0-33.3); Mean Corpuscular Volume 106.4 fL (83.0-100.0); Monocytes # 0.7 K/mcL (0.0-1.3); Monocytes % 7.8 %; Neutrophils # 7.4 K/mcL (1.6-8.9); Platelet Count 189 K/mcL (140-400); Red Blood Count 3.89 M/mcL (4.19-5.50); Red Cell Distribution Width 14.3 % (11.5-14.5); Segmented Neutrophils % 79.5 %; White Blood Count 9.3 K/mcL (4.3-11.1)
[2019-06-03 06:01] LABS: INR 1.4; Prothrombin Time 16.2 Seconds (9.4-12.1)
[2019-06-03 06:19] LABS: Calcium 9.7 mg/dL (8.6-10.3); Potassium 4.7 mEq/L (3.5-5.1)
[2019-06-03] MEDS: Metoprolol XL (24 HR) Succ 50 MG TAB.ER.24H PO SCH (08:51)
[2019-06-03] MEDS: hydrALAZINE 25 MG TABLET PO SCH (08:51)
[2019-06-03] MEDS: Aspirin Enteric Coated 81 MG Tablet PO SCH (08:51)
[2019-06-03] MEDS: Loratadine 10 MG TABLET PO SCH (08:51)
[2019-06-03] MEDS: Cholecalciferol (D-3) 1,000 UNIT (25MCG) TABLET PO SCH (08:51)
[2019-06-03] MEDS: Isosorbide MONOnitrate (24 HR) 30 MG TAB.ER.24H PO SCH (08:51)
[2019-06-03] MEDS: Fluticasone Propionate Nasal 50 MCG/SPRAY BOTTLE NS SCH (08:52)
[2019-06-03] MEDS ORDERED: Furosemide 40 MG/4 ML VIAL IVP ONE (10:42)
[2019-06-03 11:36] VITALS: BP 154/74
[2019-06-03] MEDS ORDERED: *HR* Warfarin 3 MG TABLET PO SCH (18:00)
== END 2019-06-03 14:31 | disposition home or self-care (01) ==
LOC: 3BNU 16:49 → EMEROOARM 16:49 → SUATTDRO 18:05 → 3BNU 19:44
PROVIDERS: ADMIT Internal Medicine; ATTEND Student in an Organized Health Care Education/Training Program

== ENCOUNTER 2019-06-27 10:40 | Inpatient (IN) ==
[~2019-06-27 10:40] MED LIST: *HR* Midazolam HCl 2 MG/2 ML VIAL IV ONE; *HR* Midazolam HCl 5 MG/5 ML VIAL IVP ONE; *HR* Succinylcholine 200 MG/10 ML VIAL IVP ONE
[2019-06-27] MEDS ORDERED: 0.9 % Sodium Chloride 500 ML IVC ONE ×2 (11:07→19:20)
[2019-06-27 11:31] LABS: Hematocrit 35.4 % (37.5-50.1); Hemoglobin 11.7 g/dL (12.9-16.9); Mean Corpuscular HGB Conc 33.1 g/dL (31.6-35.5); Mean Corpuscular Hemoglobin 33.7 pg (28.0-33.3); Mean Platelet Volume 11.3 fL (9.4-12.4); Platelet Count 152 K/mcL (140-400); Red Blood Count 3.47 M/mcL (4.19-5.50); Red Cell Distribution Width 15.9 % (11.5-14.5); White Blood Count 20.5 K/mcL (4.3-11.1)
[2019-06-27 11:48] LABS: INR 2.8; Prothrombin Time 32.4 Seconds (9.4-12.1)
[2019-06-27] MEDS ORDERED: 0.9 % Sodium Chloride 1,000 ML IVC ONE ×3 (11:58→19:20)
[2019-06-27 11:59] LABS: Troponin I 3.94 ng/mL (< 0.04)
[2019-06-27 12:05] LABS: Lymphocytes # 0.4 K/mcL (0.6-4.6); Monocytes # 0.6 K/mcL (0.0-1.3); Neutrophils # 17.6 K/mcL (1.6-8.9); Toxic Granulation Present (Not Present); Toxic Vacuolation Present (Not Present)
[2019-06-27 12:06] LABS: Platelet Estimate Normal (Normal)
[2019-06-27 12:24] LABS: Albumin 3.6 g/dL (3.5-5.7); Albumin/Globulin Ratio 1.1 (1.1-2.2); Bilirubin,Total 5.1 mg/dL (0.3-1.0); Calcium 8.3 mg/dL (8.6-10.3); Globulin 3.2 g/dL (2.4-3.5); Total Protein 6.8 g/dL (6.4-8.9)
[2019-06-27] MEDS ORDERED: Ondansetron 4 MG/2 ML VIAL IVP ONE (12:49)
[2019-06-27] MEDS ORDERED: Vancomycin 1,000 MG in D5% in Water 250 ML IVPB ONE (13:53)
[2019-06-27] MEDS ORDERED: Piperacillin/Tazobactam 3.375 GM in 0.9 % Sodium Chloride Mini Bag 100 ML IVPB ONE (13:53)
[2019-06-27] MEDS ORDERED: Doxycycline 100 MG in 0.9 % Sodium Chloride Mini Bag 100 ML IVPB ONE (13:54)
[2019-06-27] MEDS ORDERED: *HR* Norepinephrine 4 MG/4 ML VIAL IVC ONE (14:21)
[2019-06-27] MEDS ORDERED: 0.9 % Sodium Chloride 250 ML ONE ×2 (14:21→18:28)
[2019-06-27] MEDS ORDERED: Naloxone 0.4 MG/ML INJ IVP PRN (15:32)
[2019-06-27] MEDS ORDERED: Azithromycin 500 MG in 0.9 % Sodium Chloride 250 ML IVPB ONE (15:32)
[2019-06-27] MEDS ORDERED: Nitroglycerin 0.4 MG TAB.SUBL SL PRN (15:38)
[2019-06-27] MEDS ORDERED: Dextrose Gel 15 GM/37.5 ML TUBE PO PRN ×2 (15:50)
[2019-06-27] MEDS ORDERED: D5% in Water 1,000 ML IVC PRN (15:50)
[2019-06-27] MEDS ORDERED: *HR* Dextrose 50 % in Water (Syg) 50 ML SYRINGE IVP PRN (15:50)
[2019-06-27] MEDS ORDERED: Vancomycin (wt based) 1,000 MG VIAL IVPB SCH (16:00)
[2019-06-27] MEDS: Norepinephrine 4 MG in 0.9 % Sodium Chloride 250 ML IVC SCH ×2 (16:21→22:54)
[2019-06-27] MEDS: Ipratropium/Albuterol Neb 3 ML IH SCH ×2 (16:47→20:25)
[2019-06-27] MEDS ORDERED: Vancomycin 1 EACH in 0.9 % Sodium Chloride 250 ML IVPB SCH (17:00)
[2019-06-27] MEDS ORDERED: Dexmedetomidine HCl 400 MCG/100 ML MLS IVC ONE (17:09)
[2019-06-27] MEDS ORDERED: Artificial Tears SOLN 15 ML BOTTLE BOTH EYES PRN (17:16)
[2019-06-27 17:23] LABS: ABG Base Excess -15 mEq/L (-2 to 3); ABG HCO3 14 mEq/L (21-27); ABG Oxygen Saturation 100 % (95-98); ABG PCO2 47 mmHg (35-45); ABG PO2 299 mmHg (85-104); ABG TCO2 16 mEq/L (20-26); Blood Gas Modality ASSIST CONTROL; Blood Gas VT 480 cc
[2019-06-27] MEDS ORDERED: Dexmedetomidine HCl 400 MCG/100 ML MLS IVC SCH (17:25)
[2019-06-27] MEDS ORDERED: *HR* Succinylcholine 200 MG/10 ML VIAL IVP ONE (17:30)
[2019-06-27] MEDS ORDERED: *HR* Midazolam HCl 2 MG/2 ML VIAL IVP ONE (17:30)
[2019-06-27] MEDS ORDERED: *HR* Midazolam HCl 5 MG/5 ML VIAL IVP ONE (17:40)
[2019-06-27] MEDS: FentaNYL (PF) 1,000 MCG in 0.9 % Sodium Chloride 80 ML IVC SCH (17:46)
[2019-06-27] MEDS ORDERED: Perflutren Lipid Microsphere 1.3 ML in 0.9 % Sodium Chloride 8.7 ML IVP ONE (18:12)
[2019-06-27] MEDS ORDERED: Phenylephrine 10 MG in 0.9 % Sodium Chloride 250 ML IVC SCH ×2 (18:12→18:30)
[2019-06-27] MEDS ORDERED: Sodium Bicarbonate 50 MEQ/50 ML VIAL ONE (18:28)
[2019-06-27] MEDS ORDERED: *HR* Phenylephrine 10 MG/ML VIAL ONE (18:28)
[2019-06-27] MEDS: Insulin LISPRO 300 UNITS/3 ML VIAL SQ SCH ×2 (20:13→23:15)
[2019-06-27] MEDS: Sodium Bicarbonate 150 MEQ in D5% in Water 1,000 ML IVC SCH (20:14)
[2019-06-27] MEDS: Vasopressin 40 UNIT in D5% in Water 100 ML IVC SCH (20:15)
[2019-06-27] MEDS: Chlorhexidine Rinse 15 ML MOUTHWASH MM SCH (20:25)
[2019-06-27] MEDS: Artificial Tears SOLN 15 ML BOTTLE BOTH EYES SCH ×2 (20:25→23:15)
[2019-06-27] MEDS: Budesonide/Formoterol 160/4.5 1 PUFF INH IH SCH (20:26)
[2019-06-27 21:06] LABS: ABG Base Excess -16 mEq/L (-2 to 3); ABG HCO3 11 mEq/L (21-27); ABG Oxygen Saturation 100 % (95-98); ABG PCO2 31 mmHg (35-45); ABG PH 7.16 pH Units (7.32-7.45); ABG PO2 283 mmHg (85-104); ABG TCO2 12 mEq/L (20-26)
[2019-06-27] MEDS ORDERED: 0.9 % Sodium Chloride 500 ML ONE (21:39)
[2019-06-27] MEDS ORDERED: 0.9 % Sodium Chloride 1,000 ML ONE (21:41)
[2019-06-27 21:51] LABS: Hematocrit 29.2 % (37.5-50.1); Mean Corpuscular HGB Conc 31.2 g/dL (31.6-35.5); Mean Corpuscular Hemoglobin 33.8 pg (28.0-33.3); Mean Platelet Volume 11.7 fL (9.4-12.4); Nucleated Red Blood Cells 0.3 /100 WBC (0); Platelet Count 131 K/mcL (140-400); Red Blood Count 2.69 M/mcL (4.19-5.50); White Blood Count 22.9 K/mcL (4.3-11.1)
[2019-06-27] MEDS: Phenylephrine 50 MG in 0.9 % Sodium Chloride 250 ML IVC SCH ×2 (21:59→22:08)
[2019-06-27] MEDS: EPINEPHrine 1 MG in D5% in Water 250 ML IVC SCH (21:59)
[2019-06-27 22:06] LABS: Calcium 5.3 mg/dL (8.6-10.3); Magnesium 1.3 mg/dL (1.6-2.6); Phosphorous 6.7 mg/dL (2.7-4.5); Potassium 5.1 mEq/L (3.5-5.1)
[2019-06-27 22:14] LABS: Hemoglobin 9.1 g/dL (12.9-16.9); Mean Corpuscular Volume 108.6 fL (83.0-100.0)
[2019-06-27 22:22] LABS: Burr Cells 2+ (Not Present); Lymphocytes # 1.8 K/mcL (0.6-4.6); Monocytes # 0.5 K/mcL (0.0-1.3); Neutrophils # 19.2 K/mcL (1.6-8.9); Polychromasia 1+ (Not Present); Toxic Granulation Present (Not Present); Toxic Vacuolation Present (Not Present)
[2019-06-27] MEDS: Hydrocortisone Sodium Succ 100 MG/2 ML VIAL IVP SCH (22:54)
[2019-06-27] MEDS: Calcium Gluconate 1gm/50mL 1 GM/50 ML BAG IVPB SCH ×2 (22:55→23:29)
[2019-06-27] MEDS: MetroNIDAZOLE 500 MG/100 ML 500 MG/100 ML BAG IVPB SCH (23:15)
[2019-06-27 23:18] LABS: ABG Base Excess -19 mEq/L (-2 to 3); ABG HCO3 12 mEq/L (21-27); ABG Oxygen Saturation 100 % (95-98); ABG PCO2 44 mmHg (35-45); ABG PH 7.04 pH Units (7.32-7.45); ABG PO2 327 mmHg (85-104); ABG TCO2 13 mEq/L (20-26); Blood Gas Modality ASSIST CONTROL; Blood Gas VT 480 cc
[2019-06-28] MEDS: Ipratropium/Albuterol Neb 3 ML IH SCH ×7 (00:21→23:45)
[2019-06-28] MEDS: Calcium Gluconate 1gm/50mL 1 GM/50 ML BAG IVPB SCH ×3 (00:22→01:30)
[2019-06-28] MEDS: Norepinephrine 4 MG in 0.9 % Sodium Chloride 250 ML IVC SCH (01:20)
[2019-06-28] MEDS: EPINEPHrine 1 MG in D5% in Water 250 ML IVC SCH ×3 (01:21→20:02)
[2019-06-28 01:25] LABS: Hematocrit 37.5 % (37.5-50.1)
[2019-06-28 01:26] LABS: Hemoglobin 11.9 g/dL (12.9-16.9)
[2019-06-28] MEDS ORDERED: Gentamicin 160 MG in 0.9 % Sodium Chloride 100 ML IVPB ONE (02:00)
[2019-06-28] MEDS ORDERED: Cefepime HCl 2,000 MG in Water for inj. (sterile) 20 ML IVP SCH (02:00)
[2019-06-28 02:07] LABS: Albumin 2.9 g/dL (3.5-5.7); Bilirubin,Total 4.7 mg/dL (0.3-1.0); Calcium 10.1 mg/dL (8.6-10.3); Globulin 2.9 g/dL (2.4-3.5); Potassium 5.1 mEq/L (3.5-5.1); Total Protein 5.8 g/dL (6.4-8.9)
[2019-06-28] MEDS ORDERED: Sodium Bicarbonate 50 MEQ/50 ML VIAL IVP ONE (02:32)
[2019-06-28] MEDS ORDERED: Sodium Bicarbonate 50 MEQ/50 ML VIAL IVP SCH (02:45)
[2019-06-28] MEDS ORDERED: Piperacillin/Tazobactam 3.375 GM in 0.9 % Sodium Chloride Mini Bag 100 ML IVPB SCH (03:00)
[2019-06-28] MEDS: Artificial Tears SOLN 15 ML BOTTLE BOTH EYES SCH ×6 (03:18→23:05)
[2019-06-28] MEDS: Hydrocortisone Sodium Succ 100 MG/2 ML VIAL IVP SCH ×4 (03:25→21:13)
[2019-06-28] MEDS: Norepinephrine 8 MG in 0.9 % Sodium Chloride 250 ML IVC SCH ×3 (03:43→14:04)
[2019-06-28] MEDS: Sodium Bicarbonate 150 MEQ in D5% in Water 1,000 ML IVC SCH ×3 (03:46→19:13)
[2019-06-28 04:28] LABS: ABG Base Excess -8 mEq/L (-2 to 3); ABG HCO3 19 mEq/L (21-27); ABG Oxygen Saturation 97 % (95-98); ABG PCO2 45 mmHg (35-45); ABG PH 7.24 pH Units (7.32-7.45); ABG PO2 107 mmHg (85-104); ABG TCO2 21 mEq/L (20-26); Blood Gas Modality ASSIST CONTROL; Blood Gas VT 480 cc
[2019-06-28] MEDS: FentaNYL (PF) 1,000 MCG in 0.9 % Sodium Chloride 80 ML IVC SCH ×2 (04:34→15:10)
[2019-06-28 04:51] LABS: Hematocrit 36.1 % (37.5-50.1); Hemoglobin 11.6 g/dL (12.9-16.9); Mean Corpuscular HGB Conc 32.1 g/dL (31.6-35.5); Mean Corpuscular Volume 105.9 fL (83.0-100.0); Mean Platelet Volume 12.2 fL (9.4-12.4); Nucleated Red Blood Cells 0.8 /100 WBC (0); Platelet Count 177 K/mcL (140-400); Red Blood Count 3.41 M/mcL (4.19-5.50); Red Cell Distribution Width 15.8 % (11.5-14.5); White Blood Count 27.3 K/mcL (4.3-11.1)
[2019-06-28 05:07] LABS: Lymphocytes # 1.6 K/mcL (0.6-4.6); Monocytes # 0.6 K/mcL (0.0-1.3); Neutrophils # 25.1 K/mcL (1.6-8.9)
[2019-06-28 05:13] LABS: Magnesium 2.2 mg/dL (1.6-2.6)
[2019-06-28 05:58] LABS: Albumin 2.8 g/dL (3.5-5.7); Bilirubin,Direct 3.3 mg/dL (0.0-0.2); Bilirubin,Indirect 1.3 mg/dL (0.0-1.0); Bilirubin,Total 4.6 mg/dL (0.3-1.0); Calcium 9.3 mg/dL (8.6-10.3); Globulin 2.8 g/dL (2.4-3.5); Potassium 5.3 mEq/L (3.5-5.1); Thyroid Stimulating Hormone 2.337 mcIU/mL (0.340-5.600); Total Protein 5.6 g/dL (6.4-8.9)
[2019-06-28 06:05] LABS: Adenovirus Not Detected (Not Detect); Bordetella Pertussis Not Detected (Not Detect); Chlamydophila pneumoniae Not Detected (Not Detect); Coronavirus 229E Not Detected (Not Detect); Coronavirus HKU1 Not Detected (Not Detect); Coronavirus NL63 Not Detected (Not Detect); Coronavirus OC43 Not Detected (Not Detect); Human Metapneumovirus Not Detected (Not Detect); Human Rhinovirus/Enterovirus Not Detected (Not Detect); Influenza A Subtype 2009 H1 Not Detected (Not Detect); Influenza B Not Detected (Not Detect); Mycoplasma pneumoniae Not Detected (Not Detect); Parainfluenza Virus 1 Not Detected (Not Detect); Parainfluenza Virus 2 Not Detected (Not Detect); Parainfluenza Virus 3 Not Detected (Not Detect); Parainfluenza Virus 4 Not Detected (Not Detect); Respiratory Syncytial Virus Not Detected (Not Detect)
[2019-06-28] MEDS: Insulin LISPRO 300 UNITS/3 ML VIAL SQ SCH ×4 (06:08→23:05)
[2019-06-28] MEDS: Budesonide/Formoterol 160/4.5 1 PUFF INH IH SCH ×2 (07:23→20:16)
[2019-06-28] MEDS: Aspirin 81 MG TAB.CHEW PO SCH (08:35)
[2019-06-28] MEDS: Doxycycline 100 MG in 0.9 % Sodium Chloride Mini Bag 100 ML IVPB SCH ×2 (08:36→20:02)
[2019-06-28] MEDS: Pantoprazole 40 MG VIAL IVP SCH (08:36)
[2019-06-28] MEDS: Chlorhexidine Rinse 15 ML MOUTHWASH MM SCH ×2 (08:36→20:01)
[2019-06-28] MEDS ORDERED: *HR* Heparin 5,000 UNIT/ML VIAL IVP PRN (09:08)
[2019-06-28] MEDS ORDERED: 0.9 % Sodium Chloride 1,000 ML PRIME SCH (09:15)
[2019-06-28] MEDS ORDERED: *HR* Heparin 5,000 UNIT/ML VIAL ONE (09:36)
[2019-06-28 09:37] LABS: ABG Ionized Calcium 1.05 mmol/L (1.15-1.35)
[2019-06-28 09:38] LABS: Activated Partial Thrombo Time 38.5 Seconds (26.0-36.0)
[2019-06-28 09:44] LABS: INR 5.4; Prothrombin Time 61.7 Seconds (9.4-12.1)
[2019-06-28 09:49] LABS: Estimated Average Glucose 160 mg/dl
[2019-06-28] MEDS: Insulin DETEMIR 100 UNIT/ML X5UNITS SQ SCH ×2 (10:55→20:02)
[2019-06-28 11:57] LABS: Bilirubin,Direct 3.6 mg/dL (0.0-0.2); Bilirubin,Indirect 0.9 mg/dL (0.0-1.0); Bilirubin,Total 4.5 mg/dL (0.3-1.0)
[2019-06-28 12:21] LABS: Bilirubin,Urine Large (Negative); Blood,Urine Large (Negative); Clarity,Urine Turbid (Clear); Color,Urine Red (Yellow); Glucose,Urine (UA) 250 mg/dL (Normal); Ketones,Urine Trace mg/dL (Negative); Leukocyte Esterase,Urine Small (Negative); Nitrite,Urine Negative (Negative); Protein,Urine >=1000 mg/dL (Neg-Trace); Specific Gravity,Urine 1.028 (1.010-1.025); Urobilinogen,Urine Normal (Normal)
[2019-06-28 12:24] LABS: Acinetobacter baumannii by PCR Not Detected (Not Detect); Candida albicans by PCR Not Detected (Not Detect); Candida glabrata by PCR Not Detected (Not Detect); Candida krusei by PCR Not Detected (Not Detect); Candida parapsilosis by PCR Not Detected (Not Detect); Candida tropicalis by PCR Not Detected (Not Detect); Enterobacter cloacae Cmplx PCR Not Detected (Not Detect); Enterobacteriaceae by PCR Not Detected (Not Detect); Enterococcus by PCR Not Detected (Not Detect); Escherichia coli by PCR Not Detected (Not Detect); Klebsiella oxytoca by PCR Not Detected (Not Detect); Klebsiella pneumoniae by PCR Not Detected (Not Detect); Proteus by PCR Not Detected (Not Detect); Pseudomonas aeruginosa by PCR Not Detected (Not Detect); Serratia marcescens by PCR Not Detected (Not Detect); Staphylococcus aureus by PCR Not Detected (Not Detect); Staphylococcus by PCR Not Detected (Not Detect); Streptococcus agalactiae(B)PCR Not Detected (Not Detect); Streptococcus by PCR Not Detected (Not Detect); Streptococcus pneumoniae PCR Not Detected (Not Detect); Streptococcus pyogenes (A) PCR Not Detected (Not Detect)
[2019-06-28] MEDS ORDERED: Ampicillin 2 GM in 0.9 % Sodium Chloride Mini Bag 100 ML IVPB SCH (14:00)
[2019-06-28] MEDS: PrismaSATE BGK 4/2.5 5,000 ML CRRT SCH ×6 (14:55→21:43)
[2019-06-28 15:21] LABS: ABG Base Excess -1 mEq/L (-2 to 3); ABG HCO3 23 mEq/L (21-27); ABG Oxygen Saturation 96 % (95-98); ABG PCO2 37 mmHg (35-45); ABG PH 7.41 pH Units (7.32-7.45); ABG PO2 80 mmHg (85-104); ABG TCO2 25 mEq/L (20-26); Blood Gas Modality VC; Blood Gas VT 500 cc
[2019-06-28 16:12] LABS: Mean Platelet Volume 11.9 fL (9.4-12.4); Red Cell Distribution Width 15.6 % (11.5-14.5)
[2019-06-28] MEDS: Vasopressin 40 UNIT in D5% in Water 100 ML IVC SCH (16:12)
[2019-06-28 16:14] LABS: Hematocrit 33.1 % (37.5-50.1); Hemoglobin 11.1 g/dL (12.9-16.9); Mean Corpuscular HGB Conc 33.5 g/dL (31.6-35.5); Mean Corpuscular Hemoglobin 33.7 pg (28.0-33.3); Mean Corpuscular Volume 100.6 fL (83.0-100.0); Nucleated Red Blood Cells 0.4 /100 WBC (0); Platelet Count 158 K/mcL (140-400); Red Blood Count 3.29 M/mcL (4.19-5.50); White Blood Count 26.3 K/mcL (4.3-11.1)
[2019-06-28 16:36] LABS: Albumin 2.8 g/dL (3.5-5.7); Bilirubin,Direct 3.4 mg/dL (0.0-0.2); Bilirubin,Total 4.4 mg/dL (0.3-1.0); Calcium 8.1 mg/dL (8.6-10.3); Globulin 2.8 g/dL (2.4-3.5); Potassium 4.1 mEq/L (3.5-5.1); Total Protein 5.6 g/dL (6.4-8.9)
[2019-06-28 16:57] LABS: Lymphocytes # 1.6 K/mcL (0.6-4.6); Monocytes # 0.5 K/mcL (0.0-1.3); Neutrophils # 24.2 K/mcL (1.6-8.9); Platelet Estimate Normal (Normal)
[2019-06-28] MEDS: Meropenem 1,000 MG in Water for inj. (sterile) 20 ML IVP SCH (17:13)
[2019-06-28] MEDS ORDERED: Meropenem 500 MG in Water for inj. (sterile) 10 ML IVP SCH (18:00)
[2019-06-28] MEDS: MetroNIDAZOLE 500 MG/100 ML 500 MG/100 ML BAG IVPB SCH (19:35)
[2019-06-29] MEDS: Norepinephrine 8 MG in 0.9 % Sodium Chloride 250 ML IVC SCH ×2 (00:16→20:08)
[2019-06-29] MEDS: FentaNYL (PF) 1,000 MCG in 0.9 % Sodium Chloride 80 ML IVC SCH ×2 (00:58→12:00)
[2019-06-29] MEDS: PrismaSATE BGK 4/2.5 5,000 ML CRRT SCH ×14 (01:03→22:04)
[2019-06-29] MEDS: Artificial Tears SOLN 15 ML BOTTLE BOTH EYES SCH ×6 (03:08→23:12)
[2019-06-29] MEDS: Hydrocortisone Sodium Succ 100 MG/2 ML VIAL IVP SCH ×3 (03:08→19:53)
[2019-06-29 03:32] LABS: Basophils % 0.2 %; Hematocrit 32.2 % (37.5-50.1); Hemoglobin 11.1 g/dL (12.9-16.9); Immature Granulocytes % 0.7 % (0-4); Lymphocytes # 0.6 K/mcL (0.6-4.6); Lymphocytes % 2.7 %; Mean Corpuscular HGB Conc 34.5 g/dL (31.6-35.5); Mean Corpuscular Hemoglobin 33.4 pg (28.0-33.3); Mean Platelet Volume 11.6 fL (9.4-12.4); Monocytes # 0.6 K/mcL (0.0-1.3); Monocytes % 2.6 %; Nucleated Red Blood Cells 0.3 /100 WBC (0); Platelet Count 135 K/mcL (140-400); Red Blood Count 3.32 M/mcL (4.19-5.50); Red Cell Distribution Width 15.7 % (11.5-14.5); Segmented Neutrophils % 93.8 %; White Blood Count 23.5 K/mcL (4.3-11.1)
[2019-06-29 03:35] LABS: Basophils # 0.1 K/mcL (0.0-0.2)
[2019-06-29 03:37] LABS: Prothrombin Time 76.4 Seconds (9.4-12.1)
[2019-06-29] MEDS: Ipratropium/Albuterol Neb 3 ML IH SCH ×6 (03:51→23:20)
[2019-06-29 04:10] LABS: Albumin 2.9 g/dL (3.5-5.7); Bilirubin,Direct 3.1 mg/dL (0.0-0.2); Bilirubin,Total 4.1 mg/dL (0.3-1.0); Calcium 7.8 mg/dL (8.6-10.3); Globulin 2.9 g/dL (2.4-3.5); Magnesium 2.2 mg/dL (1.6-2.6); Phosphorous 3.3 mg/dL (2.7-4.5); Potassium 3.8 mEq/L (3.5-5.1); Total Protein 5.8 g/dL (6.4-8.9)
[2019-06-29 04:16] LABS: Platelet Estimate Normal (Normal)
[2019-06-29] MEDS: Insulin LISPRO 300 UNITS/3 ML VIAL SQ SCH ×4 (05:05→23:12)
[2019-06-29 05:06] LABS: ABG Base Excess 3 mEq/L (-2 to 3); ABG HCO3 28 mEq/L (21-27); ABG Oxygen Saturation 95 % (95-98); ABG PCO2 39 mmHg (35-45); ABG PH 7.45 pH Units (7.32-7.45); ABG PO2 70 mmHg (85-104); ABG TCO2 29 mEq/L (20-26); Blood Gas Modality AF; Blood Gas VT 500 cc
[2019-06-29] MEDS: Meropenem 1,000 MG in Water for inj. (sterile) 20 ML IVP SCH ×2 (05:06→18:08)
[2019-06-29] MEDS: Sodium Bicarbonate 150 MEQ in D5% in Water 1,000 ML IVC SCH (06:14)
[2019-06-29] MEDS: Chlorhexidine Rinse 15 ML MOUTHWASH MM SCH ×2 (07:47→19:53)
[2019-06-29] MEDS: Aspirin 81 MG TAB.CHEW PO SCH (07:47)
[2019-06-29] MEDS: Insulin DETEMIR 100 UNIT/ML X5UNITS SQ SCH ×2 (07:47→19:53)
[2019-06-29] MEDS: Budesonide/Formoterol 160/4.5 1 PUFF INH IH SCH ×2 (07:52→19:47)
[2019-06-29] MEDS ORDERED: Ampicillin 2 GM in 0.9 % Sodium Chloride Mini Bag 100 ML IVPB SCH (08:00)
[2019-06-29] MEDS: Doxycycline 100 MG in 0.9 % Sodium Chloride Mini Bag 100 ML IVPB SCH (08:08)
[2019-06-29] MEDS: Pantoprazole 40 MG VIAL IVP SCH (08:15)
[2019-06-29] MEDS: Dexmedetomidine HCl 400 MCG/100 ML MLS IVC SCH ×2 (09:15→16:29)
[2019-06-29 09:39] LABS: INR 5.7; Prothrombin Time 64.4 Seconds (9.4-12.1)
[2019-06-29] MEDS ORDERED: *HR* Heparin 5,000 UNIT/ML VIAL ONE (09:54)
[2019-06-29] MEDS: Vasopressin 40 UNIT in D5% in Water 100 ML IVC SCH (12:07)
[2019-06-29] MEDS: EPINEPHrine 1 MG in D5% in Water 250 ML IVC SCH (19:53)
[2019-06-29] MEDS: Phenylephrine 50 MG in 0.9 % Sodium Chloride 250 ML IVC SCH (19:54)
[2019-06-30] MEDS: FentaNYL (PF) 1,000 MCG in 0.9 % Sodium Chloride 80 ML IVC SCH ×2 (00:09→18:00)
[2019-06-30] MEDS: PrismaSATE BGK 4/2.5 5,000 ML CRRT SCH ×14 (01:26→22:18)
[2019-06-30] MEDS: Artificial Tears SOLN 15 ML BOTTLE BOTH EYES SCH ×6 (03:13→23:08)
[2019-06-30] MEDS: Ipratropium/Albuterol Neb 3 ML IH SCH ×6 (03:26→23:26)
[2019-06-30 03:36] LABS: Basophils % 0.2 %; Hematocrit 33.3 % (37.5-50.1); Hemoglobin 11.2 g/dL (12.9-16.9); Immature Granulocytes % 0.7 % (0-4); Lymphocytes # 0.5 K/mcL (0.6-4.6); Lymphocytes % 2.2 %; Mean Corpuscular HGB Conc 33.6 g/dL (31.6-35.5); Mean Corpuscular Hemoglobin 33.3 pg (28.0-33.3); Mean Corpuscular Volume 99.1 fL (83.0-100.0); Mean Platelet Volume 11.3 fL (9.4-12.4); Monocytes # 0.9 K/mcL (0.0-1.3); Monocytes % 3.9 %; Neutrophils # 21.8 K/mcL (1.6-8.9); Nucleated Red Blood Cells 0.8 /100 WBC (0); Platelet Count 112 K/mcL (140-400); Red Blood Count 3.36 M/mcL (4.19-5.50); Red Cell Distribution Width 15.9 % (11.5-14.5); White Blood Count 23.4 K/mcL (4.3-11.1)
[2019-06-30 03:37] LABS: INR 3.5; Prothrombin Time 39.4 Seconds (9.4-12.1)
[2019-06-30 03:54] LABS: Basophils # 0.1 K/mcL (0.0-0.2)
[2019-06-30] MEDS: Dexmedetomidine HCl 400 MCG/100 ML MLS IVC SCH ×3 (04:00→22:00)
[2019-06-30 04:04] LABS: Albumin 2.8 g/dL (3.5-5.7); Bilirubin,Direct 3.2 mg/dL (0.0-0.2); Bilirubin,Indirect 1.1 mg/dL (0.0-1.0); Bilirubin,Total 4.3 mg/dL (0.3-1.0); Calcium 7.9 mg/dL (8.6-10.3); Globulin 2.8 g/dL (2.4-3.5); Magnesium 2.4 mg/dL (1.6-2.6); Phosphorous 2.7 mg/dL (2.7-4.5); Potassium 4.3 mEq/L (3.5-5.1); Total Protein 5.6 g/dL (6.4-8.9)
[2019-06-30 04:33] LABS: ABG Base Excess 2 mEq/L (-2 to 3); ABG HCO3 27 mEq/L (21-27); ABG Oxygen Saturation 97 % (95-98); ABG PCO2 44 mmHg (35-45); ABG PO2 91 mmHg (85-104); ABG TCO2 29 mEq/L (20-26); Blood Gas Modality AF; Blood Gas VT 500 cc
[2019-06-30] MEDS: Meropenem 1,000 MG in Water for inj. (sterile) 20 ML IVP SCH ×2 (05:05→17:03)
[2019-06-30] MEDS: Insulin LISPRO 300 UNITS/3 ML VIAL SQ SCH ×4 (05:21→23:09)
[2019-06-30] MEDS: Budesonide/Formoterol 160/4.5 1 PUFF INH IH SCH ×2 (07:42→19:43)
[2019-06-30] MEDS: Chlorhexidine Rinse 15 ML MOUTHWASH MM SCH ×2 (08:21→20:58)
[2019-06-30] MEDS: Aspirin 81 MG TAB.CHEW PO SCH (08:21)
[2019-06-30] MEDS: Hydrocortisone Sodium Succ 100 MG/2 ML VIAL IVP SCH ×3 (08:21→23:08)
[2019-06-30] MEDS: Pantoprazole 40 MG VIAL IVP SCH (08:21)
[2019-06-30] MEDS: Insulin DETEMIR 100 UNIT/ML X5UNITS SQ SCH ×2 (08:21→20:58)
[2019-06-30] MEDS: Vasopressin 40 UNIT in D5% in Water 100 ML IVC SCH (11:12)
[2019-06-30] MEDS ORDERED: *HR* Heparin 5,000 UNIT/ML VIAL ONE (13:12)
[2019-06-30] MEDS: EPINEPHrine 1 MG in D5% in Water 250 ML IVC SCH (20:58)
[2019-06-30] MEDS: Phenylephrine 50 MG in 0.9 % Sodium Chloride 250 ML IVC SCH (20:58)
[2019-07-01] MEDS: Norepinephrine 8 MG in 0.9 % Sodium Chloride 250 ML IVC SCH (00:46)
[2019-07-01] MEDS: PrismaSATE BGK 4/2.5 5,000 ML CRRT SCH ×14 (01:38→22:54)
[2019-07-01] MEDS: Artificial Tears SOLN 15 ML BOTTLE BOTH EYES SCH ×6 (03:11→23:48)
[2019-07-01 03:22] LABS: Basophils % 0.2 %; Eosinophils % 0.1 %; Nucleated Red Blood Cells 0.8 /100 WBC (0); Red Blood Count 3.33 M/mcL (4.19-5.50)
[2019-07-01 03:24] LABS: Hematocrit 33.1 % (37.5-50.1); Hemoglobin 11.2 g/dL (12.9-16.9); Immature Platelets 9.4 % (1.1-6.1); Lymphocytes # 0.8 K/mcL (0.6-4.6); Lymphocytes % 4.7 %; Mean Corpuscular HGB Conc 33.8 g/dL (31.6-35.5); Mean Corpuscular Hemoglobin 33.6 pg (28.0-33.3); Mean Corpuscular Volume 99.4 fL (83.0-100.0); Monocytes # 1.1 K/mcL (0.0-1.3); Monocytes % 6.3 %; Neutrophils # 14.5 K/mcL (1.6-8.9); Segmented Neutrophils % 86.7 %; White Blood Count 16.7 K/mcL (4.3-11.1)
[2019-07-01 03:26] LABS: Mean Platelet Volume 11.6 fL (9.4-12.4); Platelet Count 92 K/mcL (140-400)
[2019-07-01 03:27] LABS: INR 3.3; Prothrombin Time 37.6 Seconds (9.4-12.1)
[2019-07-01] MEDS: Ipratropium/Albuterol Neb 3 ML IH SCH ×5 (03:38→19:50)
[2019-07-01 03:45] LABS: Procalcitonin 23.1 ng/mL (0.00-0.15)
[2019-07-01 04:03] LABS: % Iron Saturation 69 % (20-55); Alanine Aminotransferase 1224 Units/L (7-52); Albumin 3.2 g/dL (3.5-5.7); Albumin/Globulin Ratio 1.1 (1.1-2.2); Alkaline Phosphatase 170 Units/L (34-104); Aspartate Amino Transferase 809 Units/L (13-39); BUN/Creatinine Ratio 15 (6-26); Bilirubin,Direct 3.4 mg/dL (0.0-0.2); Bilirubin,Indirect 1.2 mg/dL (0.0-1.0); Bilirubin,Total 4.6 mg/dL (0.3-1.0); Blood Urea Nitrogen 23 mg/dL (8-23); Calcium 8.2 mg/dL (8.6-10.3); Carbon Dioxide 25 mEq/L (23-29); Chloride 103 mEq/L (98-107); Ferritin > 1500 ng/mL (20-250); Globulin 2.8 g/dL (2.4-3.5); Glucose 159 mg/dL (70-105); Iron 133 mcg/dL (65-175); Magnesium 2.5 mg/dL (1.6-2.6); Osmolality,Calculated 287 (280-300); Phosphorous 3.4 mg/dL (2.7-4.5); Potassium 4.6 mEq/L (3.5-5.1); Sodium 135 mEq/L (136-145); Transferrin 138 mg/dL (203-362); Vancomycin,Random 19 mcg/mL; eGFR For African Americans 54 (> 60); eGFR For Non-African Americans 45 (> 60)
[2019-07-01 04:39] LABS: ABG Base Excess 2 mEq/L (-2 to 3); ABG HCO3 28 mEq/L (21-27); ABG Oxygen Saturation 98 % (95-98); ABG PCO2 51 mmHg (35-45); ABG PH 7.35 pH Units (7.32-7.45); ABG PO2 108 mmHg (85-104); ABG TCO2 30 mEq/L (20-26); Blood Gas Modality AF; Blood Gas VT 500 cc
[2019-07-01] MEDS: Dexmedetomidine HCl 400 MCG/100 ML MLS IVC SCH ×2 (04:54→23:56)
[2019-07-01] MEDS: FentaNYL (PF) 1,000 MCG in 0.9 % Sodium Chloride 80 ML IVC SCH (04:54)
[2019-07-01] MEDS: Meropenem 1,000 MG in Water for inj. (sterile) 20 ML IVP SCH ×2 (06:10→16:36)
[2019-07-01] MEDS: Insulin LISPRO 300 UNITS/3 ML VIAL SQ SCH ×4 (06:13→23:50)
[2019-07-01] MEDS: Budesonide/Formoterol 160/4.5 1 PUFF INH IH SCH ×2 (07:16→19:51)
[2019-07-01] MEDS: Insulin DETEMIR 100 UNIT/ML X5UNITS SQ SCH ×2 (07:28→20:16)
[2019-07-01] MEDS: Aspirin 81 MG TAB.CHEW PO SCH (07:28)
[2019-07-01] MEDS: Pantoprazole 40 MG VIAL IVP SCH (07:28)
[2019-07-01] MEDS: Chlorhexidine Rinse 15 ML MOUTHWASH MM SCH ×2 (07:28→20:16)
[2019-07-01] MEDS ORDERED: Aminoglycoside Consult 1 EACH MC ONE (08:27)
[2019-07-01] MEDS: Hydrocortisone Sodium Succ 100 MG/2 ML VIAL IVP SCH (09:58)
[2019-07-01] MEDS: Vasopressin 40 UNIT in D5% in Water 100 ML IVC SCH (10:15)
[2019-07-01] MEDS ORDERED: *HR* Heparin 5,000 UNIT/ML VIAL ONE (14:50)
[2019-07-01] MEDS: Clindamycin 600 MG/50 ML 600 MG/50 ML IV.SOLN IVPB SCH ×2 (15:00→23:41)
[2019-07-01 16:43] LABS: Amylase 66 Units/L (29-103); Lipase 110 Units/L (11-82)
[2019-07-01] MEDS: Phenylephrine 50 MG in 0.9 % Sodium Chloride 250 ML IVC SCH (20:25)
[2019-07-01] MEDS: Calcium Gluconate 1gm/50mL 1 GM/50 ML BAG IVPB SCH (23:40)
[2019-07-02] MEDS: Ipratropium/Albuterol Neb 3 ML IH SCH ×7 (00:03→23:24)
[2019-07-02] MEDS ORDERED: *HR* Heparin 5,000 UNIT/ML VIAL ONE (01:38)
[2019-07-02] MEDS ORDERED: 0.9 % Sodium Chloride 500 ML ONE (01:38)
[2019-07-02] MEDS: PrismaSATE BGK 4/2.5 5,000 ML CRRT SCH ×14 (02:15→23:36)
[2019-07-02 02:23] LABS: Albumin 3.3 g/dL (3.5-5.7); Albumin/Globulin Ratio 1.2 (1.1-2.2); Bilirubin,Direct 3.7 mg/dL (0.0-0.2); Bilirubin,Indirect 1.4 mg/dL (0.0-1.0); Bilirubin,Total 5.1 mg/dL (0.3-1.0); Calcium 8.4 mg/dL (8.6-10.3); Globulin 2.8 g/dL (2.4-3.5); Magnesium 2.6 mg/dL (1.6-2.6); Phosphorous 2.3 mg/dL (2.7-4.5); Total Protein 6.1 g/dL (6.4-8.9)
[2019-07-02 02:53] LABS: Troponin I 3.69 ng/mL (< 0.04)
[2019-07-02 03:47] LABS: Basophils % 0.7 %; Lymphocytes % 8.2 %; Mean Platelet Volume 12.1 fL (9.4-12.4)
[2019-07-02 03:49] LABS: Basophils # 0.1 K/mcL (0.0-0.2); Eosinophils # 0.1 K/mcL (0.0-0.6); Eosinophils % 0.8 %; Hematocrit 33.6 % (37.5-50.1); Hemoglobin 11.2 g/dL (12.9-16.9); Immature Granulocytes % 7.4 % (0-4); Immature Platelets 10.8 % (1.1-6.1); Lymphocytes # 1.4 K/mcL (0.6-4.6); Mean Corpuscular HGB Conc 33.3 g/dL (31.6-35.5); Mean Corpuscular Hemoglobin 33.2 pg (28.0-33.3); Mean Corpuscular Volume 99.7 fL (83.0-100.0); Monocytes # 1.5 K/mcL (0.0-1.3); Monocytes % 8.8 %; Neutrophils # 12.7 K/mcL (1.6-8.9); Nucleated Red Blood Cells 3.6 /100 WBC (0); Red Blood Count 3.37 M/mcL (4.19-5.50); Red Cell Distribution Width 16.2 % (11.5-14.5); Segmented Neutrophils % 74.1 %; White Blood Count 17.1 K/mcL (4.3-11.1)
[2019-07-02 03:50] LABS: Platelet Count 90 K/mcL (140-400)
[2019-07-02 03:53] LABS: INR 3.9
[2019-07-02 03:56] LABS: Prothrombin Time 44.8 Seconds (9.4-12.1)
[2019-07-02 04:29] LABS: ABG Base Excess 2 mEq/L (-2 to 3); ABG HCO3 28 mEq/L (21-27); ABG Oxygen Saturation 96 % (95-98); ABG PCO2 48 mmHg (35-45); ABG PH 7.37 pH Units (7.32-7.45); ABG PO2 85 mmHg (85-104); ABG TCO2 29 mEq/L (20-26); Blood Gas Modality AF; Blood Gas VT 500 cc
[2019-07-02] MEDS: Artificial Tears SOLN 15 ML BOTTLE BOTH EYES SCH ×5 (05:02→21:02)
[2019-07-02] MEDS: Insulin LISPRO 300 UNITS/3 ML VIAL SQ SCH ×3 (06:09→17:50)
[2019-07-02] MEDS: Meropenem 1,000 MG in Water for inj. (sterile) 20 ML IVP SCH ×2 (06:09→17:51)
[2019-07-02] MEDS: Budesonide/Formoterol 160/4.5 1 PUFF INH IH SCH ×2 (07:34→20:00)
[2019-07-02] MEDS: Aspirin 81 MG TAB.CHEW PO SCH (08:00)
[2019-07-02] MEDS: Chlorhexidine Rinse 15 ML MOUTHWASH MM SCH ×2 (08:00→21:02)
[2019-07-02] MEDS: Clindamycin 600 MG/50 ML 600 MG/50 ML IV.SOLN IVPB SCH ×3 (08:56→22:52)
[2019-07-02] MEDS: Pantoprazole 40 MG VIAL IVP SCH (08:56)
[2019-07-02] MEDS: Insulin DETEMIR 100 UNIT/ML X5UNITS SQ SCH ×2 (08:59→21:58)
[2019-07-02] MEDS ORDERED: *HR* Metoprolol 5 MG/5 ML VIAL IVP ONE (10:02)
[2019-07-02] MEDS: *HR* Metoprolol 5 MG/5 ML VIAL IVP SCH ×3 (11:18→22:52)
[2019-07-02] MEDS: Phenylephrine 50 MG in 0.9 % Sodium Chloride 250 ML IVC SCH (21:02)
[2019-07-03] MEDS: Artificial Tears SOLN 15 ML BOTTLE BOTH EYES SCH ×7 (01:00→23:51)
[2019-07-03] MEDS: Insulin LISPRO 300 UNITS/3 ML VIAL SQ SCH ×4 (02:19→17:33)
[2019-07-03] MEDS: PrismaSATE BGK 4/2.5 5,000 ML CRRT SCH ×6 (02:52→12:12)
[2019-07-03] MEDS: Norepinephrine 8 MG in 0.9 % Sodium Chloride 250 ML IVC SCH (03:17)
[2019-07-03 03:33] LABS: Basophils % 0.8 %; Eosinophils # 0.1 K/mcL (0.0-0.6); Eosinophils % 0.6 %; Hematocrit 34.3 % (37.5-50.1); Immature Granulocytes % 5.3 % (0-4); Lymphocytes % 5.3 %; Mean Corpuscular HGB Conc 32.1 g/dL (31.6-35.5); Mean Corpuscular Hemoglobin 32.9 pg (28.0-33.3); Mean Corpuscular Volume 102.7 fL (83.0-100.0); Mean Platelet Volume 12.6 fL (9.4-12.4); Monocytes # 1.6 K/mcL (0.0-1.3); Monocytes % 9.1 %; Neutrophils # 14.2 K/mcL (1.6-8.9); Nucleated Red Blood Cells 1.4 /100 WBC (0); Platelet Count 107 K/mcL (140-400); Red Blood Count 3.34 M/mcL (4.19-5.50); Red Cell Distribution Width 16.4 % (11.5-14.5); Segmented Neutrophils % 78.9 %
[2019-07-03 03:39] LABS: Albumin 3.3 g/dL (3.5-5.7); Albumin/Globulin Ratio 1.1 (1.1-2.2); Bilirubin,Direct 4.2 mg/dL (0.0-0.2); Bilirubin,Indirect 1.7 mg/dL (0.0-1.0); Bilirubin,Total 5.9 mg/dL (0.3-1.0); Calcium 8.7 mg/dL (8.6-10.3); Magnesium 2.6 mg/dL (1.6-2.6); Phosphorous 3.7 mg/dL (2.7-4.5); Potassium 4.9 mEq/L (3.5-5.1); Total Protein 6.3 g/dL (6.4-8.9)
[2019-07-03 03:41] LABS: Basophils # 0.1 K/mcL (0.0-0.2)
[2019-07-03] MEDS: Ipratropium/Albuterol Neb 3 ML IH SCH ×6 (03:56→23:51)
[2019-07-03 03:59] LABS: INR 4.1
[2019-07-03 04:01] LABS: Hypochromasia Present (Not Present); Large Platelets Present (Not Present); Platelet Estimate Slight Decrease (Normal)
[2019-07-03 04:03] LABS: Prothrombin Time 46.7 Seconds (9.4-12.1)
[2019-07-03 04:31] LABS: ABG Base Excess 1 mEq/L (-2 to 3); ABG HCO3 28 mEq/L (21-27); ABG Oxygen Saturation 98 % (95-98); ABG PCO2 50 mmHg (35-45); ABG PH 7.35 pH Units (7.32-7.45); ABG PO2 117 mmHg (85-104); ABG TCO2 29 mEq/L (20-26)
[2019-07-03] MEDS: Meropenem 1,000 MG in Water for inj. (sterile) 20 ML IVP SCH ×2 (05:37→17:32)
[2019-07-03] MEDS: *HR* Metoprolol 5 MG/5 ML VIAL IVP SCH ×4 (05:37→23:51)
[2019-07-03] MEDS: Budesonide/Formoterol 160/4.5 1 PUFF INH IH SCH ×2 (08:22→20:11)
[2019-07-03] MEDS: Clindamycin 600 MG/50 ML 600 MG/50 ML IV.SOLN IVPB SCH ×3 (08:26→23:51)
[2019-07-03] MEDS: Pantoprazole 40 MG VIAL IVP SCH (08:26)
[2019-07-03] MEDS: Chlorhexidine Rinse 15 ML MOUTHWASH MM SCH ×2 (08:28→21:11)
[2019-07-03] MEDS: Aspirin 81 MG TAB.CHEW PO SCH (08:28)
[2019-07-03] MEDS: Insulin DETEMIR 100 UNIT/ML X5UNITS SQ SCH (08:38)
[2019-07-03] MEDS ORDERED: *HR* Heparin 5,000 UNIT/ML VIAL ONE (17:40)
[2019-07-03] MEDS: Phenylephrine 50 MG in 0.9 % Sodium Chloride 250 ML IVC SCH (21:11)
[2019-07-04] MEDS: Norepinephrine 8 MG in 0.9 % Sodium Chloride 250 ML IVC SCH
[2019-07-04] MEDS: Ipratropium/Albuterol Neb 3 ML IH SCH ×6 (03:26→23:27)
[2019-07-04 03:59] LABS: Basophils # 0.2 K/mcL (0.0-0.2); Eosinophils # 0.1 K/mcL (0.0-0.6); Eosinophils % 0.6 %; Hematocrit 32.8 % (37.5-50.1); Hemoglobin 10.9 g/dL (12.9-16.9); Lymphocytes # 1.1 K/mcL (0.6-4.6); Lymphocytes % 5.7 %; Mean Corpuscular HGB Conc 33.2 g/dL (31.6-35.5); Mean Corpuscular Hemoglobin 32.8 pg (28.0-33.3); Mean Corpuscular Volume 98.8 fL (83.0-100.0); Mean Platelet Volume 12.3 fL (9.4-12.4); Monocytes # 1.5 K/mcL (0.0-1.3); Monocytes % 7.9 %; Neutrophils # 14.9 K/mcL (1.6-8.9); Nucleated Red Blood Cells 0.7 /100 WBC (0); Platelet Count 134 K/mcL (140-400); Red Blood Count 3.32 M/mcL (4.19-5.50); Red Cell Distribution Width 16.4 % (11.5-14.5); Segmented Neutrophils % 77.8 %; White Blood Count 19.2 K/mcL (4.3-11.1)
[2019-07-04] MEDS: Artificial Tears SOLN 15 ML BOTTLE BOTH EYES SCH ×6 (04:00→23:50)
[2019-07-04 04:05] LABS: INR 1.6; Prothrombin Time 18.1 Seconds (9.4-12.1)
[2019-07-04 04:14] LABS: Albumin 3.1 g/dL (3.5-5.7); Bilirubin,Direct 4.3 mg/dL (0.0-0.2); Bilirubin,Indirect 1.8 mg/dL (0.0-1.0); Bilirubin,Total 6.1 mg/dL (0.3-1.0); Calcium 8.9 mg/dL (8.6-10.3); Magnesium 2.8 mg/dL (1.6-2.6); Phosphorous 5.5 mg/dL (2.7-4.5); Potassium 5.4 mEq/L (3.5-5.1); Total Protein 6.1 g/dL (6.4-8.9)
[2019-07-04 04:47] LABS: Hypochromasia Present (Not Present); Target Cells 1+ (Not Present)
[2019-07-04 04:48] LABS: Platelet Estimate Decreased (Normal)
[2019-07-04] MEDS: Meropenem 1,000 MG in Water for inj. (sterile) 20 ML IVP SCH (05:09)
[2019-07-04] MEDS: Insulin LISPRO 300 UNITS/3 ML VIAL SQ SCH ×5 (05:09→23:59)
[2019-07-04] MEDS: *HR* Metoprolol 5 MG/5 ML VIAL IVP SCH ×4 (05:09→23:53)
[2019-07-04] MEDS: Aspirin 81 MG TAB.CHEW PO SCH ×3 (07:25→11:55)
[2019-07-04 07:28] LABS: Hepatitis B Surface Antibody < 3.10 mIU/mL
[2019-07-04 07:38] LABS: Hepatitis B Surface Antigen Nonreactive (Nonreactive)
[2019-07-04] MEDS: Budesonide/Formoterol 160/4.5 1 PUFF INH IH SCH ×2 (08:08→19:59)
[2019-07-04] MEDS ORDERED: 0.9 % Sodium Chloride 1,000 ML PRIME SCH (08:15)
[2019-07-04] MEDS ORDERED: *HR* Heparin 10,000 UNIT/10 ML VIAL IV PRN ×2 (08:15)
[2019-07-04] MEDS ORDERED: 0.9 % Sodium Chloride 250 ML IVC PRN (08:15)
[2019-07-04] MEDS: Chlorhexidine Rinse 15 ML MOUTHWASH MM SCH ×2 (08:32→20:45)
[2019-07-04] MEDS: Pantoprazole 40 MG VIAL IVP SCH (08:32)
[2019-07-04] MEDS: Clindamycin 600 MG/50 ML 600 MG/50 ML IV.SOLN IVPB SCH ×3 (08:32→23:53)
[2019-07-04] MEDS: Dexmedetomidine HCl 400 MCG/100 ML MLS IVC SCH (10:10)
[2019-07-04 17:00] LABS: Hepatitis B Core IgM Nonreactive (Nonreactive); Hepatitis C Virus Antibody Nonreactive (Nonreactive)
[2019-07-04 17:02] LABS: Hepatitis A Antibody IgM Nonreactive (Nonreactive)
[2019-07-04] MEDS: FentaNYL (PF) 1,000 MCG in 0.9 % Sodium Chloride 80 ML IVC SCH (17:49)
[2019-07-04 18:37] LABS: INR 6.7
[2019-07-04] MEDS: Meropenem 500 MG in Water for inj. (sterile) 10 ML IVP SCH (20:44)
[2019-07-04] MEDS: Phenylephrine 50 MG in 0.9 % Sodium Chloride 250 ML IVC SCH (23:48)
[2019-07-05] MEDS: Norepinephrine 8 MG in 0.9 % Sodium Chloride 250 ML IVC SCH (03:13)
[2019-07-05] MEDS: Ipratropium/Albuterol Neb 3 ML IH SCH ×6 (03:13→23:20)
[2019-07-05] MEDS: Artificial Tears SOLN 15 ML BOTTLE BOTH EYES SCH ×3 (03:13→11:13)
[2019-07-05 04:16] LABS: Calcium 8.8 mg/dL (8.6-10.3); Magnesium 2.5 mg/dL (1.6-2.6); Potassium 4.6 mEq/L (3.5-5.1)
[2019-07-05 04:21] LABS: INR 1.4; Prothrombin Time 15.4 Seconds (9.4-12.1)
[2019-07-05 04:22] LABS: Hematocrit 30.4 % (37.5-50.1); Hemoglobin 10.2 g/dL (12.9-16.9); Mean Corpuscular HGB Conc 33.6 g/dL (31.6-35.5); Mean Corpuscular Hemoglobin 33.7 pg (28.0-33.3); Mean Corpuscular Volume 100.3 fL (83.0-100.0); Mean Platelet Volume 12.2 fL (9.4-12.4); Nucleated Red Blood Cells 0.5 /100 WBC (0); Platelet Count 140 K/mcL (140-400); Red Blood Count 3.03 M/mcL (4.19-5.50); Red Cell Distribution Width 16.8 % (11.5-14.5)
[2019-07-05 05:12] LABS: Anisocytosis 1+ (Not Present); Eosinophils # 0.7 K/mcL (0.0-0.6); Lymphocytes # 0.4 K/mcL (0.6-4.6); Macrocytosis Present (Not Present); Monocytes # 1.4 K/mcL (0.0-1.3); Neutrophils # 15.5 K/mcL (1.6-8.9); Platelet Estimate Normal (Normal); Polychromasia 1+ (Not Present)
[2019-07-05] MEDS: Insulin LISPRO 300 UNITS/3 ML VIAL SQ SCH ×3 (06:13→19:16)
[2019-07-05] MEDS: *HR* Metoprolol 5 MG/5 ML VIAL IVP SCH ×3 (06:13→17:16)
[2019-07-05] MEDS: Dexmedetomidine HCl 400 MCG/100 ML MLS IVC SCH (07:15)
[2019-07-05] MEDS: Budesonide/Formoterol 160/4.5 1 PUFF INH IH SCH ×2 (07:40→20:25)
[2019-07-05] MEDS ORDERED: *HR* Heparin 10,000 UNIT/10 ML VIAL IV PRN ×2 (07:48)
[2019-07-05] MEDS ORDERED: 0.9 % Sodium Chloride 250 ML IVC PRN (07:48)
[2019-07-05] MEDS: Pantoprazole 40 MG VIAL IVP SCH (08:10)
[2019-07-05] MEDS: Chlorhexidine Rinse 15 ML MOUTHWASH MM SCH (08:10)
[2019-07-05] MEDS: Clindamycin 600 MG/50 ML 600 MG/50 ML IV.SOLN IVPB SCH ×2 (08:10→17:16)
[2019-07-05 09:01] LABS: Albumin 2.9 g/dL (3.5-5.7); Bilirubin,Direct 3.1 mg/dL (0.0-0.2); Bilirubin,Indirect 1.7 mg/dL (0.0-1.0); Bilirubin,Total 4.8 mg/dL (0.3-1.0); Globulin 2.9 g/dL (2.4-3.5); Total Protein 5.8 g/dL (6.4-8.9)
[2019-07-05] MEDS ORDERED: Heparin 1,000 UNITS/500 mL 500 ML ONE (12:09)
[2019-07-05] MEDS ORDERED: *HR* Succinylcholine 200 MG/10 ML VIAL IVP ONE (12:14)
[2019-07-05] MEDS ORDERED: Lidocaine HCL 4 ML Topical Solution (Laryng-O-Jet Kit Sterile Pak) TP ONE (12:14)
[2019-07-05] MEDS ORDERED: Ondansetron 4 MG/2 ML VIAL ONE (12:14)
[2019-07-05] MEDS ORDERED: *HR* FentaNYL (PF) 100 MCG/2 ML VIAL ONE (12:14)
[2019-07-05] MEDS ORDERED: Lidocaine -MPF 2% 2 ML VIAL ONE (12:14)
[2019-07-05] MEDS ORDERED: *HR* Etomidate 40 MG/20 ML VIAL IVP ONE (12:14)
[2019-07-05] MEDS ORDERED: *HR* Rocuronium Bromide 50 MG/5 ML VIAL ONE (12:14)
[2019-07-05] MEDS ORDERED: Dexamethasone 4 MG/ML VIAL ONE (12:14)
[2019-07-05] MEDS ORDERED: Lidocaine -MPF 4% 5 ML AMPUL ONE (12:52)
[2019-07-05] MEDS ORDERED: *HR* PHENYLEPHRINE 1,000 MCG/10 ML SYRINGE IVP ONE (13:57)
[2019-07-05] MEDS ORDERED: Ondansetron 4 MG/2 ML VIAL IVP ONE (14:16)
[2019-07-05] MEDS ORDERED: *HR* Promethazine 25 MG/ML VIAL IVP PRN (14:16)
[2019-07-05] MEDS ORDERED: Albuterol 2.5 MG/3 ML NEBULIZER IH PRN (14:16)
[2019-07-05] MEDS ORDERED: *HR* Metoprolol 5 MG/5 ML VIAL IVP PRN (14:16)
[2019-07-05] MEDS ORDERED: *HR* FentaNYL (PF) 100 MCG/2 ML VIAL IVP PRN (14:16)
[2019-07-05] MEDS: Nystatin SUSP 5 ML UD.LIQ PO SCH ×3 (15:15→21:21)
[2019-07-05] MEDS: Meropenem 500 MG in Water for inj. (sterile) 10 ML IVP SCH (21:07)
[2019-07-06] MEDS: *HR* Metoprolol 5 MG/5 ML VIAL IVP SCH ×6 (00:23→23:48)
[2019-07-06] MEDS: Clindamycin 600 MG/50 ML 600 MG/50 ML IV.SOLN IVPB SCH ×4 (00:23→23:43)
[2019-07-06] MEDS: Insulin LISPRO 300 UNITS/3 ML VIAL SQ SCH ×6 (00:25→23:47)
[2019-07-06] MEDS ORDERED: Melatonin 3 MG TABLET PO PRN ×2 (00:27→11:39)
[2019-07-06] MEDS: Ipratropium/Albuterol Neb 3 ML IH SCH ×7 (03:15→23:45)
[2019-07-06 05:17] LABS: Basophils # 0.1 K/mcL (0.0-0.2); Basophils % 0.3 %; Eosinophils # 0.1 K/mcL (0.0-0.6); Eosinophils % 0.4 %; Hematocrit 29.2 % (37.5-50.1); Hemoglobin 9.9 g/dL (12.9-16.9); Immature Granulocytes % 2.6 % (0-4); Lymphocytes # 0.9 K/mcL (0.6-4.6); Mean Corpuscular HGB Conc 33.9 g/dL (31.6-35.5); Mean Corpuscular Hemoglobin 33.6 pg (28.0-33.3); Mean Platelet Volume 11.7 fL (9.4-12.4); Monocytes # 1.6 K/mcL (0.0-1.3); Monocytes % 10.7 %; Neutrophils # 11.8 K/mcL (1.6-8.9); Nucleated Red Blood Cells 0.1 /100 WBC (0); Platelet Count 140 K/mcL (140-400); Red Blood Count 2.95 M/mcL (4.19-5.50); Red Cell Distribution Width 16.6 % (11.5-14.5); White Blood Count 14.8 K/mcL (4.3-11.1)
[2019-07-06 05:24] LABS: INR 1.4; Prothrombin Time 15.6 Seconds (9.4-12.1)
[2019-07-06 05:41] LABS: Albumin 2.9 g/dL (3.5-5.7); Bilirubin,Direct 2.5 mg/dL (0.0-0.2); Bilirubin,Indirect 1.9 mg/dL (0.0-1.0); Bilirubin,Total 4.4 mg/dL (0.3-1.0); Calcium 8.7 mg/dL (8.6-10.3); Potassium 5.1 mEq/L (3.5-5.1); Total Protein 5.9 g/dL (6.4-8.9)
[2019-07-06] MEDS: Budesonide/Formoterol 160/4.5 1 PUFF INH IH SCH ×2 (07:15→20:00)
[2019-07-06] MEDS: Nystatin SUSP 5 ML UD.LIQ PO SCH ×4 (07:37→20:05)
[2019-07-06] MEDS: Pantoprazole 40 MG VIAL IVP SCH (07:37)
[2019-07-06] MEDS ORDERED: cefTRIAXone 2,000 MG in 0.9 % Sodium Chloride Mini Bag 100 ML IVPB SCH (10:00)
[2019-07-06] MEDS: PrismaSATE BGK 4/2.5 5,000 ML CRRT SCH ×2 (10:40)
[2019-07-06] MEDS ORDERED: 0.9 % Sodium Chloride 1,000 ML PRIME SCH (11:39)
[2019-07-06] MEDS ORDERED: *HR* Metoprolol 5 MG/5 ML VIAL IVP PRN (11:39)
[2019-07-06] MEDS ORDERED: Nitroglycerin 0.4 MG TAB.SUBL SL PRN (11:39)
[2019-07-06] MEDS ORDERED: D5% in Water 1,000 ML IVC PRN (11:39)
[2019-07-06] MEDS ORDERED: Albuterol 2.5 MG/3 ML NEBULIZER IH PRN (11:39)
[2019-07-06] MEDS ORDERED: *HR* Promethazine 25 MG/ML VIAL IVP PRN (11:39)
[2019-07-06] MEDS ORDERED: 0.9 % Sodium Chloride 250 ML IVC PRN (11:39)
[2019-07-06] MEDS ORDERED: Naloxone 0.4 MG/ML INJ IVP PRN (11:39)
[2019-07-06] MEDS ORDERED: *HR* Heparin 10,000 UNIT/10 ML VIAL IV PRN ×3 (11:39)
[2019-07-06] MEDS ORDERED: Dextrose Gel 15 GM/37.5 ML TUBE PO PRN ×2 (11:39)
[2019-07-06] MEDS ORDERED: *HR* Dextrose 50 % in Water (Syg) 50 ML SYRINGE IVP PRN (11:39)
[2019-07-07] MEDS: Ipratropium/Albuterol Neb 3 ML IH SCH ×6 (03:45→23:45)
[2019-07-07 05:22] LABS: Hematocrit 28.5 % (37.5-50.1); Mean Corpuscular HGB Conc 35.1 g/dL (31.6-35.5); Mean Corpuscular Hemoglobin 33.4 pg (28.0-33.3); Mean Corpuscular Volume 95.3 fL (83.0-100.0); Mean Platelet Volume 11.6 fL (9.4-12.4); Platelet Count 146 K/mcL (140-400); Red Blood Count 2.99 M/mcL (4.19-5.50); Red Cell Distribution Width 16.6 % (11.5-14.5); White Blood Count 14.9 K/mcL (4.3-11.1)
[2019-07-07 05:32] LABS: Calcium 8.6 mg/dL (8.6-10.3); Magnesium 2.3 mg/dL (1.6-2.6); Potassium 5.7 mEq/L (3.5-5.1)
[2019-07-07] MEDS: *HR* Metoprolol 5 MG/5 ML VIAL IVP SCH ×2 (06:08→11:59)
[2019-07-07] MEDS: Insulin LISPRO 300 UNITS/3 ML VIAL SQ SCH ×4 (06:08→21:12)
[2019-07-07] MEDS: Budesonide/Formoterol 160/4.5 1 PUFF INH IH SCH ×2 (07:19→20:03)
[2019-07-07] MEDS ORDERED: 0.9 % Sodium Chloride 250 ML IVC PRN (07:46)
[2019-07-07] MEDS ORDERED: *HR* Heparin 10,000 UNIT/10 ML VIAL IV PRN (07:46)
[2019-07-07] MEDS: Clindamycin 600 MG/50 ML 600 MG/50 ML IV.SOLN IVPB SCH ×3 (08:08→23:49)
[2019-07-07] MEDS: Nystatin SUSP 5 ML UD.LIQ PO SCH ×4 (08:15→21:13)
[2019-07-07] MEDS: Aspirin 81 MG TAB.CHEW PO SCH (08:15)
[2019-07-07] MEDS: cefTRIAXone 2,000 MG in 0.9 % Sodium Chloride Mini Bag 100 ML IVPB SCH (08:16)
[2019-07-07] MEDS: *HR* Heparin 10,000 UNIT/10 ML VIAL IV PRN ×2 (12:25→14:09)
[2019-07-08] MEDS: Ipratropium/Albuterol Neb 3 ML IH SCH ×5 (04:04→20:01)
[2019-07-08 04:41] LABS: Basophils % 0.2 %; Eosinophils # 0.2 K/mcL (0.0-0.6); Eosinophils % 1.4 %; Hemoglobin 9.9 g/dL (12.9-16.9); Lymphocytes # 0.7 K/mcL (0.6-4.6); Lymphocytes % 5.5 %; Mean Corpuscular HGB Conc 34.1 g/dL (31.6-35.5); Mean Corpuscular Hemoglobin 33.9 pg (28.0-33.3); Mean Corpuscular Volume 99.3 fL (83.0-100.0); Mean Platelet Volume 11.9 fL (9.4-12.4); Monocytes # 1.3 K/mcL (0.0-1.3); Monocytes % 10.8 %; Platelet Count 150 K/mcL (140-400); Red Blood Count 2.92 M/mcL (4.19-5.50); Segmented Neutrophils % 81.1 %; White Blood Count 12.3 K/mcL (4.3-11.1)
[2019-07-08 05:02] LABS: Albumin 2.9 g/dL (3.5-5.7); Bilirubin,Total 3.8 mg/dL (0.3-1.0); Calcium 8.6 mg/dL (8.6-10.3); Potassium 4.9 mEq/L (3.5-5.1); Total Protein 5.9 g/dL (6.4-8.9)
[2019-07-08] MEDS: Budesonide/Formoterol 160/4.5 1 PUFF INH IH SCH ×2 (07:18→20:01)
[2019-07-08] MEDS: cefTRIAXone 2,000 MG in 0.9 % Sodium Chloride Mini Bag 100 ML IVPB SCH (07:40)
[2019-07-08] MEDS: Insulin LISPRO 300 UNITS/3 ML VIAL SQ SCH ×4 (07:50→21:19)
[2019-07-08] MEDS: Nystatin SUSP 5 ML UD.LIQ PO SCH ×4 (07:53→21:18)
[2019-07-08] MEDS: Aspirin 81 MG TAB.CHEW PO SCH (09:33)
[2019-07-08] MEDS: Clindamycin 600 MG/50 ML 600 MG/50 ML IV.SOLN IVPB SCH ×2 (09:34→17:11)
[2019-07-08] MEDS: Sennosides 8.6 MG TABLET PO SCH ×2 (11:53→21:17)
[2019-07-08] MEDS: Magnesium Oxide 400 MG TABLET PO SCH ×2 (11:53→17:10)
[2019-07-08] MEDS ORDERED: Heparin 1,000 UNITS/500 mL 500 ML ONE (14:51)
[2019-07-08] MEDS ORDERED: *HR* Midazolam HCl 2 MG/2 ML VIAL IVP ONE (14:55)
[2019-07-08] MEDS ORDERED: *HR* FentaNYL (PF) 100 MCG/2 ML VIAL IVP ONE (14:55)
[2019-07-08] MEDS ORDERED: 0.9 % Sodium Chloride 500 ML ONE (15:00)
[2019-07-08] MEDS ORDERED: *HR* FentaNYL (PF) 100 MCG/2 ML VIAL ONE (15:05)
[2019-07-08] MEDS ORDERED: *HR* Heparin 5,000 UNIT/ML VIAL ONE (15:05)
[2019-07-08] MEDS ORDERED: *HR* Midazolam HCl 2 MG/2 ML VIAL ONE (15:06)
[2019-07-08 16:47] LABS: INR 1.3; Prothrombin Time 15.2 Seconds (9.4-12.1)
[2019-07-08] MEDS ORDERED: *HR* Warfarin 2 MG TABLET PO ONE (18:00)
[2019-07-08] MEDS ORDERED: Warfarin perPT PO PRN (18:00)
[2019-07-09] MEDS: Ipratropium/Albuterol Neb 3 ML IH SCH ×6 (00:09→19:54)
[2019-07-09] MEDS: Clindamycin 600 MG/50 ML 600 MG/50 ML IV.SOLN IVPB SCH ×3 (00:18→15:45)
[2019-07-09 04:21] LABS: Basophils % 0.4 %; Eosinophils # 0.2 K/mcL (0.0-0.6); Eosinophils % 1.6 %; Hematocrit 27.9 % (37.5-50.1); Hemoglobin 9.7 g/dL (12.9-16.9); Immature Granulocytes % 0.8 % (0-4); Lymphocytes # 0.5 K/mcL (0.6-4.6); Lymphocytes % 4.9 %; Mean Corpuscular HGB Conc 34.8 g/dL (31.6-35.5); Mean Corpuscular Hemoglobin 33.4 pg (28.0-33.3); Mean Corpuscular Volume 96.2 fL (83.0-100.0); Mean Platelet Volume 11.9 fL (9.4-12.4); Monocytes # 1.3 K/mcL (0.0-1.3); Monocytes % 11.7 %; Neutrophils # 8.6 K/mcL (1.6-8.9); Platelet Count 162 K/mcL (140-400); Red Cell Distribution Width 17.2 % (11.5-14.5); Segmented Neutrophils % 80.6 %; White Blood Count 10.7 K/mcL (4.3-11.1)
[2019-07-09 04:31] LABS: INR 1.2; Prothrombin Time 13.7 Seconds (9.4-12.1)
[2019-07-09 04:36] LABS: Calcium 8.5 mg/dL (8.6-10.3); Potassium 5.2 mEq/L (3.5-5.1)
[2019-07-09] MEDS: Budesonide/Formoterol 160/4.5 1 PUFF INH IH SCH ×2 (07:36→19:54)
[2019-07-09] MEDS: cefTRIAXone 2,000 MG in 0.9 % Sodium Chloride Mini Bag 100 ML IVPB SCH (08:32)
[2019-07-09] MEDS: Insulin LISPRO 300 UNITS/3 ML VIAL SQ SCH ×4 (08:37→21:02)
[2019-07-09] MEDS: Magnesium Oxide 400 MG TABLET PO SCH ×2 (08:39→15:45)
[2019-07-09] MEDS: Aspirin 81 MG TAB.CHEW PO SCH (08:39)
[2019-07-09] MEDS: Sennosides 8.6 MG TABLET PO SCH ×2 (08:39→21:06)
[2019-07-09] MEDS: Metoprolol XL (24 HR) Succ 25 MG TAB.ER.24H PO SCH (08:39)
[2019-07-09] MEDS: Nystatin SUSP 5 ML UD.LIQ PO SCH ×2 (08:39→13:33)
[2019-07-09] MEDS ORDERED: 0.9 % Sodium Chloride 250 ML IVC PRN (08:58)
[2019-07-09] MEDS ORDERED: *HR* Heparin 10,000 UNIT/10 ML VIAL IV PRN (09:04)
[2019-07-09] MEDS ORDERED: *HR* Warfarin 2 MG TABLET PO ONE (18:00)
[2019-07-10] MEDS: Ipratropium/Albuterol Neb 3 ML IH SCH ×6 (00:32→19:46)
[2019-07-10] MEDS: Clindamycin 600 MG/50 ML 600 MG/50 ML IV.SOLN IVPB SCH ×4 (01:04→23:55)
[2019-07-10 06:14] LABS: Basophils # 0.1 K/mcL (0.0-0.2); Basophils % 0.5 %; Eosinophils # 0.1 K/mcL (0.0-0.6); Eosinophils % 1.4 %; Hematocrit 27.6 % (37.5-50.1); Hemoglobin 9.6 g/dL (12.9-16.9); Immature Granulocytes % 0.5 % (0-4); Lymphocytes # 0.4 K/mcL (0.6-4.6); Lymphocytes % 4.1 %; Mean Corpuscular HGB Conc 34.8 g/dL (31.6-35.5); Mean Corpuscular Hemoglobin 33.3 pg (28.0-33.3); Mean Corpuscular Volume 95.8 fL (83.0-100.0); Mean Platelet Volume 11.7 fL (9.4-12.4); Monocytes # 1.2 K/mcL (0.0-1.3); Monocytes % 12.2 %; Neutrophils # 8.2 K/mcL (1.6-8.9); Platelet Count 186 K/mcL (140-400); Red Blood Count 2.88 M/mcL (4.19-5.50); Red Cell Distribution Width 17.3 % (11.5-14.5); Segmented Neutrophils % 81.3 %; White Blood Count 10.1 K/mcL (4.3-11.1)
[2019-07-10 06:19] LABS: INR 1.4; Prothrombin Time 15.7 Seconds (9.4-12.1)
[2019-07-10 06:28] LABS: Albumin 2.9 g/dL (3.5-5.7); Bilirubin,Total 3.1 mg/dL (0.3-1.0); Calcium 8.5 mg/dL (8.6-10.3); Globulin 2.9 g/dL (2.4-3.5); Potassium 4.7 mEq/L (3.5-5.1); Total Protein 5.8 g/dL (6.4-8.9)
[2019-07-10] MEDS: Insulin LISPRO 300 UNITS/3 ML VIAL SQ SCH ×4 (07:25→21:48)
[2019-07-10] MEDS: Budesonide/Formoterol 160/4.5 1 PUFF INH IH SCH ×2 (07:39→19:46)
[2019-07-10] MEDS: Aspirin 81 MG TAB.CHEW PO SCH (08:27)
[2019-07-10] MEDS: Magnesium Oxide 400 MG TABLET PO SCH ×2 (08:27→15:50)
[2019-07-10] MEDS: Sennosides 8.6 MG TABLET PO SCH ×2 (08:27→20:03)
[2019-07-10] MEDS: Metoprolol XL (24 HR) Succ 25 MG TAB.ER.24H PO SCH (08:28)
[2019-07-10] MEDS: cefTRIAXone 2,000 MG in 0.9 % Sodium Chloride Mini Bag 100 ML IVPB SCH (08:28)
[2019-07-10] MEDS ORDERED: *HR* Warfarin 2 MG TABLET PO ONE (18:00)
[2019-07-11] MEDS: Ipratropium/Albuterol Neb 3 ML IH SCH ×7 (00:17→23:17)
[2019-07-11 05:00] LABS: Basophils # 0.1 K/mcL (0.0-0.2); Basophils % 0.5 %; Eosinophils # 0.1 K/mcL (0.0-0.6); Eosinophils % 1.3 %; Hematocrit 26.3 % (37.5-50.1); Hemoglobin 9.3 g/dL (12.9-16.9); INR 1.4; Immature Granulocytes % 0.5 % (0-4); Lymphocytes # 0.6 K/mcL (0.6-4.6); Mean Corpuscular HGB Conc 35.4 g/dL (31.6-35.5); Mean Corpuscular Hemoglobin 33.5 pg (28.0-33.3); Mean Corpuscular Volume 94.6 fL (83.0-100.0); Mean Platelet Volume 11.5 fL (9.4-12.4); Monocytes # 1.4 K/mcL (0.0-1.3); Monocytes % 12.2 %; Platelet Count 231 K/mcL (140-400); Red Blood Count 2.78 M/mcL (4.19-5.50); Segmented Neutrophils % 80.5 %; White Blood Count 11.1 K/mcL (4.3-11.1)
[2019-07-11 05:12] LABS: Calcium 8.7 mg/dL (8.6-10.3); Potassium 5.4 mEq/L (3.5-5.1)
[2019-07-11] MEDS: Budesonide/Formoterol 160/4.5 1 PUFF INH IH SCH ×2 (07:25→19:33)
[2019-07-11] MEDS: Insulin LISPRO 300 UNITS/3 ML VIAL SQ SCH ×4 (08:02→21:33)
[2019-07-11] MEDS: Magnesium Oxide 400 MG TABLET PO SCH ×2 (08:02→17:55)
[2019-07-11] MEDS: Aspirin 81 MG TAB.CHEW PO SCH (08:02)
[2019-07-11] MEDS: Metoprolol XL (24 HR) Succ 25 MG TAB.ER.24H PO SCH (08:03)
[2019-07-11] MEDS: Sennosides 8.6 MG TABLET PO SCH ×2 (08:03→20:16)
[2019-07-11] MEDS: cefTRIAXone 2,000 MG in 0.9 % Sodium Chloride Mini Bag 100 ML IVPB SCH (08:04)
[2019-07-11] MEDS ORDERED: *HR* Heparin 10,000 UNIT/10 ML VIAL IV PRN (08:33)
[2019-07-11] MEDS ORDERED: 0.9 % Sodium Chloride 250 ML IVC PRN (08:33)
[2019-07-11] MEDS: Clindamycin 600 MG/50 ML 600 MG/50 ML IV.SOLN IVPB SCH ×3 (09:27→23:40)
[2019-07-11] MEDS ORDERED: *HR* Warfarin 4 MG TABLET PO ONE (18:00)
[2019-07-12] MEDS: Ipratropium/Albuterol Neb 3 ML IH SCH ×4 (03:53→23:45)
[2019-07-12 06:32] LABS: INR 1.5; Prothrombin Time 16.5 Seconds (9.4-12.1)
[2019-07-12 06:37] LABS: Calcium 8.6 mg/dL (8.6-10.3); Potassium 4.8 mEq/L (3.5-5.1)
[2019-07-12] MEDS: Budesonide/Formoterol 160/4.5 1 PUFF INH IH SCH ×2 (07:36→19:56)
[2019-07-12] MEDS: Magnesium Oxide 400 MG TABLET PO SCH ×2 (09:01→15:57)
[2019-07-12] MEDS: Insulin LISPRO 300 UNITS/3 ML VIAL SQ SCH ×4 (09:01→20:26)
[2019-07-12] MEDS: Sennosides 8.6 MG TABLET PO SCH ×2 (09:01→22:30)
[2019-07-12] MEDS: Metoprolol XL (24 HR) Succ 25 MG TAB.ER.24H PO SCH (09:01)
[2019-07-12] MEDS: Aspirin 81 MG TAB.CHEW PO SCH (09:01)
[2019-07-12] MEDS: cefTRIAXone 2,000 MG in 0.9 % Sodium Chloride Mini Bag 100 ML IVPB SCH (09:01)
[2019-07-12] MEDS: Clindamycin 600 MG/50 ML 600 MG/50 ML IV.SOLN IVPB SCH ×2 (09:04→15:57)
[2019-07-12 11:16] LABS: Albumin 2.9 g/dL (3.5-5.7); Albumin/Globulin Ratio 0.9 (1.1-2.2); Bilirubin,Direct 1.5 mg/dL (0.0-0.2); Bilirubin,Indirect 1.3 mg/dL (0.0-1.0); Bilirubin,Total 2.8 mg/dL (0.3-1.0); Globulin 3.2 g/dL (2.4-3.5); Total Protein 6.1 g/dL (6.4-8.9)
[2019-07-12] MEDS ORDERED: *HR* Warfarin 2 MG TABLET PO ONE (18:00)
[2019-07-13 05:05] LABS: Basophils # 0.1 K/mcL (0.0-0.2); Basophils % 0.8 %; Eosinophils # 0.3 K/mcL (0.0-0.6); Eosinophils % 2.6 %; Hematocrit 25.2 % (37.5-50.1); Hemoglobin 8.7 g/dL (12.9-16.9); Immature Granulocytes % 0.4 % (0-4); Lymphocytes # 0.6 K/mcL (0.6-4.6); Lymphocytes % 6.4 %; Mean Corpuscular HGB Conc 34.5 g/dL (31.6-35.5); Mean Corpuscular Hemoglobin 33.7 pg (28.0-33.3); Mean Corpuscular Volume 97.7 fL (83.0-100.0); Mean Platelet Volume 11.6 fL (9.4-12.4); Monocytes # 1.3 K/mcL (0.0-1.3); Monocytes % 12.9 %; Neutrophils # 7.5 K/mcL (1.6-8.9); Platelet Count 276 K/mcL (140-400); Red Blood Count 2.58 M/mcL (4.19-5.50); Red Cell Distribution Width 17.1 % (11.5-14.5); Segmented Neutrophils % 76.9 %; White Blood Count 9.7 K/mcL (4.3-11.1)
[2019-07-13 05:07] LABS: Prothrombin Time 22.8 Seconds (9.4-12.1)
[2019-07-13 05:25] LABS: Uric Acid 4.7 mg/dL (2.3-7.6)
[2019-07-13 05:26] LABS: Calcium 8.8 mg/dL (8.6-10.3); Phosphorous 6.5 mg/dL (2.7-4.5); Potassium 4.7 mEq/L (3.5-5.1)
[2019-07-13 05:49] LABS: Folate 8.2 ng/mL (3.0-16.0)
[2019-07-13 05:54] LABS: Vitamin B12 > 1500 pg/mL (250-1100)
[2019-07-13] MEDS ORDERED: 0.9 % Sodium Chloride 250 ML IVC PRN (07:09)
[2019-07-13] MEDS ORDERED: *HR* Heparin 10,000 UNIT/10 ML VIAL IV PRN (07:09)
[2019-07-13] MEDS ORDERED: 0.9 % Sodium Chloride 1,000 ML PRIME SCH (07:15)
[2019-07-13] MEDS: Budesonide/Formoterol 160/4.5 1 PUFF INH IH SCH ×2 (07:27→22:38)
[2019-07-13] MEDS: Ipratropium/Albuterol Neb 3 ML IH SCH ×3 (07:27→22:38)
[2019-07-13] MEDS: Magnesium Oxide 400 MG TABLET PO SCH ×2 (08:34→17:21)
[2019-07-13] MEDS: Insulin LISPRO 300 UNITS/3 ML VIAL SQ SCH ×4 (08:35→21:14)
[2019-07-13] MEDS: Sennosides 8.6 MG TABLET PO SCH ×2 (08:35→22:00)
[2019-07-13] MEDS: Aspirin 81 MG TAB.CHEW PO SCH (08:35)
[2019-07-13] MEDS: Metoprolol XL (24 HR) Succ 25 MG TAB.ER.24H PO SCH (08:35)
[2019-07-13 15:53] LABS: Vitamin D 25 Hydroxy 27 ng/mL (30-80)
[2019-07-13] MEDS: Calcium Acetate 667 MG CAPSULE PO SCH (17:21)
[2019-07-13] MEDS ORDERED: *HR* Warfarin 2 MG TABLET PO ONE (18:00)
[2019-07-14 06:04] LABS: Prothrombin Time 22.5 Seconds (9.4-12.1)
[2019-07-14 06:16] LABS: Albumin 2.9 g/dL (3.5-5.7); Calcium 8.9 mg/dL (8.6-10.3); Phosphorous 4.4 mg/dL (2.7-4.5); Potassium 4.3 mEq/L (3.5-5.1)
[2019-07-14] MEDS: Ipratropium/Albuterol Neb 3 ML IH SCH ×2 (07:32→15:32)
[2019-07-14] MEDS: Budesonide/Formoterol 160/4.5 1 PUFF INH IH SCH ×2 (07:32→20:25)
[2019-07-14] MEDS: Magnesium Oxide 400 MG TABLET PO SCH ×2 (08:41→17:01)
[2019-07-14] MEDS: Insulin LISPRO 300 UNITS/3 ML VIAL SQ SCH ×4 (08:41→22:34)
[2019-07-14] MEDS: Calcium Acetate 667 MG CAPSULE PO SCH ×3 (08:41→17:01)
[2019-07-14] MEDS: Metoprolol XL (24 HR) Succ 25 MG TAB.ER.24H PO SCH (08:41)
[2019-07-14] MEDS: Sennosides 8.6 MG TABLET PO SCH ×2 (08:41→22:49)
[2019-07-14] MEDS: Aspirin 81 MG TAB.CHEW PO SCH (08:41)
[2019-07-14] MEDS ORDERED: *HR* Warfarin 3 MG TABLET PO ONE (18:00)
[2019-07-15] MEDS: Ipratropium/Albuterol Neb 3 ML IH SCH ×4 (00:05→23:41)
[2019-07-15 04:30] LABS: INR 2.2; Prothrombin Time 25.2 Seconds (9.4-12.1)
[2019-07-15 04:47] LABS: Albumin 2.8 g/dL (3.5-5.7); Magnesium 2.1 mg/dL (1.6-2.6); Phosphorous 5.3 mg/dL (2.7-4.5); Potassium 4.4 mEq/L (3.5-5.1)
[2019-07-15] MEDS: Budesonide/Formoterol 160/4.5 1 PUFF INH IH SCH ×2 (07:32→23:40)
[2019-07-15] MEDS ORDERED: 0.9 % Sodium Chloride 250 ML IVC PRN (07:52)
[2019-07-15] MEDS ORDERED: *HR* Heparin 10,000 UNIT/10 ML VIAL IV PRN (07:52)
[2019-07-15] MEDS: Magnesium Oxide 400 MG TABLET PO SCH ×2 (08:12→16:35)
[2019-07-15] MEDS: Aspirin 81 MG TAB.CHEW PO SCH (08:13)
[2019-07-15] MEDS: Sennosides 8.6 MG TABLET PO SCH ×2 (08:13→22:03)
[2019-07-15] MEDS: Calcium Acetate 667 MG CAPSULE PO SCH ×3 (08:13→16:35)
[2019-07-15] MEDS: Metoprolol XL (24 HR) Succ 25 MG TAB.ER.24H PO SCH (08:13)
[2019-07-15] MEDS: Insulin LISPRO 300 UNITS/3 ML VIAL SQ SCH ×4 (08:15→22:00)
[2019-07-15] MEDS ORDERED: Ergocalciferol (VIT D2) 50,000 UNIT (1.25MG) CAP PO SCH (15:00)
[2019-07-15] MEDS ORDERED: *HR* Warfarin 2 MG TABLET PO ONE (18:00)
[2019-07-16] MEDS: Ipratropium/Albuterol Neb 3 ML IH SCH ×3 (07:15→23:52)
[2019-07-16] MEDS: Budesonide/Formoterol 160/4.5 1 PUFF INH IH SCH ×2 (07:15→20:12)
[2019-07-16 07:24] LABS: Basophils # 0.1 K/mcL (0.0-0.2); Eosinophils # 0.3 K/mcL (0.0-0.6); Eosinophils % 3.1 %; Hematocrit 25.5 % (37.5-50.1); Hemoglobin 8.3 g/dL (12.9-16.9); Immature Granulocytes % 0.5 % (0-4); Lymphocytes # 0.7 K/mcL (0.6-4.6); Lymphocytes % 8.2 %; Mean Corpuscular HGB Conc 32.5 g/dL (31.6-35.5); Mean Corpuscular Hemoglobin 32.9 pg (28.0-33.3); Mean Corpuscular Volume 101.2 fL (83.0-100.0); Mean Platelet Volume 10.9 fL (9.4-12.4); Monocytes % 12.4 %; Platelet Count 364 K/mcL (140-400); Red Blood Count 2.52 M/mcL (4.19-5.50); Segmented Neutrophils % 74.8 %
[2019-07-16 07:29] LABS: Prothrombin Time 23.3 Seconds (9.4-12.1)
[2019-07-16 07:36] LABS: Calcium 8.8 mg/dL (8.6-10.3); Potassium 4.5 mEq/L (3.5-5.1)
[2019-07-16] MEDS: Insulin LISPRO 300 UNITS/3 ML VIAL SQ SCH ×4 (09:04→21:17)
[2019-07-16] MEDS: Calcium Acetate 667 MG CAPSULE PO SCH ×3 (09:05→16:39)
[2019-07-16] MEDS: Magnesium Oxide 400 MG TABLET PO SCH ×2 (09:05→16:39)
[2019-07-16] MEDS: Metoprolol XL (24 HR) Succ 25 MG TAB.ER.24H PO SCH (09:05)
[2019-07-16] MEDS: Sennosides 8.6 MG TABLET PO SCH ×2 (09:06→21:17)
[2019-07-16] MEDS: Aspirin 81 MG TAB.CHEW PO SCH (11:11)
[2019-07-16] MEDS ORDERED: *HR* Warfarin 3 MG TABLET PO ONE (18:00)
[2019-07-17 03:43] LABS: Prothrombin Time 22.5 Seconds (9.4-12.1)
[2019-07-17] MEDS: Budesonide/Formoterol 160/4.5 1 PUFF INH IH SCH (07:19)
[2019-07-17] MEDS: Ipratropium/Albuterol Neb 3 ML IH SCH ×2 (07:19→16:11)
[2019-07-17] MEDS: Metoprolol XL (24 HR) Succ 25 MG TAB.ER.24H PO SCH (09:40)
[2019-07-17] MEDS: Magnesium Oxide 400 MG TABLET PO SCH ×2 (09:40→17:50)
[2019-07-17] MEDS: Calcium Acetate 667 MG CAPSULE PO SCH ×3 (09:40→17:50)
[2019-07-17] MEDS: Sennosides 8.6 MG TABLET PO SCH ×2 (09:40→20:22)
[2019-07-17] MEDS: Aspirin 81 MG TAB.CHEW PO SCH (09:41)
[2019-07-17] MEDS: Insulin LISPRO 300 UNITS/3 ML VIAL SQ SCH ×4 (09:44→20:22)
[2019-07-17] MEDS ORDERED: *HR* Warfarin 2 MG TABLET PO ONE (18:00)
[2019-07-18] MEDS: Budesonide/Formoterol 160/4.5 1 PUFF INH IH SCH ×3 (00:03→23:52)
[2019-07-18] MEDS: Ipratropium/Albuterol Neb 3 ML IH SCH ×4 (00:04→23:55)
[2019-07-18 03:47] LABS: INR 2.1; Prothrombin Time 24.1 Seconds (9.4-12.1)
[2019-07-18] MEDS ORDERED: 0.9 % Sodium Chloride 250 ML IVC PRN (07:02)
[2019-07-18] MEDS: Metoprolol XL (24 HR) Succ 25 MG TAB.ER.24H PO SCH (07:35)
[2019-07-18] MEDS: Aspirin 81 MG TAB.CHEW PO SCH (07:35)
[2019-07-18] MEDS: Calcium Acetate 667 MG CAPSULE PO SCH ×3 (07:35→16:58)
[2019-07-18] MEDS: Sennosides 8.6 MG TABLET PO SCH ×2 (07:35→20:13)
[2019-07-18] MEDS: Magnesium Oxide 400 MG TABLET PO SCH ×2 (07:35→16:58)
[2019-07-18] MEDS: Insulin LISPRO 300 UNITS/3 ML VIAL SQ SCH ×4 (07:42→20:28)
[2019-07-18 07:50] LABS: Basophils # 0.1 K/mcL (0.0-0.2); Basophils % 1.8 %; Eosinophils # 0.4 K/mcL (0.0-0.6); Eosinophils % 4.9 %; Hematocrit 25.3 % (37.5-50.1); Hemoglobin 8.5 g/dL (12.9-16.9); Immature Granulocytes % 0.4 % (0-4); Lymphocytes # 0.7 K/mcL (0.6-4.6); Lymphocytes % 10.4 %; Mean Corpuscular HGB Conc 33.6 g/dL (31.6-35.5); Mean Corpuscular Hemoglobin 33.7 pg (28.0-33.3); Mean Corpuscular Volume 100.4 fL (83.0-100.0); Mean Platelet Volume 10.8 fL (9.4-12.4); Monocytes # 0.7 K/mcL (0.0-1.3); Monocytes % 9.4 %; Neutrophils # 5.2 K/mcL (1.6-8.9); Platelet Count 377 K/mcL (140-400); Red Blood Count 2.52 M/mcL (4.19-5.50); Red Cell Distribution Width 16.3 % (11.5-14.5); Segmented Neutrophils % 73.1 %; White Blood Count 7.1 K/mcL (4.3-11.1)
[2019-07-18 08:15] LABS: Calcium 9.1 mg/dL (8.6-10.3); Potassium 4.8 mEq/L (3.5-5.1)
[2019-07-18] MEDS ORDERED: *HR* Heparin 10,000 UNIT/10 ML VIAL IV PRN (11:09)
[2019-07-18] MEDS ORDERED: *HR* Warfarin 3 MG TABLET PO SCH (18:00)
[2019-07-19 04:17] LABS: Basophils # 0.1 K/mcL (0.0-0.2); Basophils % 1.6 %; Eosinophils # 0.3 K/mcL (0.0-0.6); Eosinophils % 3.9 %; Hematocrit 23.6 % (37.5-50.1); Hemoglobin 7.7 g/dL (12.9-16.9); Immature Granulocytes % 0.6 % (0-4); Lymphocytes # 0.8 K/mcL (0.6-4.6); Lymphocytes % 12.4 %; Mean Corpuscular HGB Conc 32.6 g/dL (31.6-35.5); Mean Corpuscular Volume 101.3 fL (83.0-100.0); Mean Platelet Volume 10.8 fL (9.4-12.4); Monocytes # 0.7 K/mcL (0.0-1.3); Neutrophils # 4.8 K/mcL (1.6-8.9); Platelet Count 362 K/mcL (140-400); Red Blood Count 2.33 M/mcL (4.19-5.50); Red Cell Distribution Width 16.1 % (11.5-14.5); Segmented Neutrophils % 70.5 %; White Blood Count 6.8 K/mcL (4.3-11.1)
[2019-07-19 04:18] LABS: INR 2.1; Prothrombin Time 23.4 Seconds (9.4-12.1)
[2019-07-19 04:32] LABS: Calcium 8.6 mg/dL (8.6-10.3); Magnesium 1.8 mg/dL (1.6-2.6); Phosphorous 3.6 mg/dL (2.7-4.5)
[2019-07-19] MEDS: Ipratropium/Albuterol Neb 3 ML IH SCH ×2 (07:27→15:42)
[2019-07-19] MEDS: Budesonide/Formoterol 160/4.5 1 PUFF INH IH SCH ×2 (07:27→22:16)
[2019-07-19] MEDS: Calcium Acetate 667 MG CAPSULE PO SCH ×3 (07:37→16:39)
[2019-07-19] MEDS: Aspirin 81 MG TAB.CHEW PO SCH (07:37)
[2019-07-19] MEDS: Sennosides 8.6 MG TABLET PO SCH ×2 (07:37→19:56)
[2019-07-19] MEDS: Metoprolol XL (24 HR) Succ 25 MG TAB.ER.24H PO SCH (07:37)
[2019-07-19] MEDS: Magnesium Oxide 400 MG TABLET PO SCH ×2 (07:37→16:39)
[2019-07-19] MEDS: Insulin LISPRO 300 UNITS/3 ML VIAL SQ SCH ×4 (07:38→19:56)
[2019-07-19] MEDS ORDERED: *HR* Warfarin 2 MG TABLET PO SCH (18:00)
[2019-07-20] MEDS: Ipratropium/Albuterol Neb 3 ML IH SCH ×2 (00:34→07:36)
[2019-07-20 03:27] LABS: Basophils # 0.1 K/mcL (0.0-0.2); Basophils % 1.5 %; Eosinophils # 0.3 K/mcL (0.0-0.6); Eosinophils % 4.3 %; Hematocrit 24.7 % (37.5-50.1); Immature Granulocytes % 0.4 % (0-4); Lymphocytes # 0.8 K/mcL (0.6-4.6); Lymphocytes % 12.2 %; Mean Corpuscular HGB Conc 32.4 g/dL (31.6-35.5); Mean Corpuscular Hemoglobin 33.2 pg (28.0-33.3); Mean Corpuscular Volume 102.5 fL (83.0-100.0); Mean Platelet Volume 10.2 fL (9.4-12.4); Monocytes # 0.8 K/mcL (0.0-1.3); Monocytes % 12.1 %; Neutrophils # 4.7 K/mcL (1.6-8.9); Platelet Count 362 K/mcL (140-400); Red Blood Count 2.41 M/mcL (4.19-5.50); Red Cell Distribution Width 15.9 % (11.5-14.5); Segmented Neutrophils % 69.5 %; White Blood Count 6.8 K/mcL (4.3-11.1)
[2019-07-20 03:46] LABS: Prothrombin Time 22.5 Seconds (9.4-12.1)
[2019-07-20 03:54] LABS: Magnesium 1.8 mg/dL (1.6-2.6); Phosphorous 4.8 mg/dL (2.7-4.5); Potassium 4.3 mEq/L (3.5-5.1)
[2019-07-20] MEDS ORDERED: 0.9 % Sodium Chloride 2,000 ML ONE (06:56)
[2019-07-20] MEDS ORDERED: 0.9 % Sodium Chloride 250 ML IVC PRN (07:14)
[2019-07-20] MEDS ORDERED: 0.9 % Sodium Chloride 1,000 ML PRIME SCH (07:15)
[2019-07-20] MEDS: Budesonide/Formoterol 160/4.5 1 PUFF INH IH SCH (07:36)
[2019-07-20] MEDS: Insulin LISPRO 300 UNITS/3 ML VIAL SQ SCH ×2 (09:02→12:27)
[2019-07-20] MEDS: Calcium Acetate 667 MG CAPSULE PO SCH (09:03)
[2019-07-20] MEDS: Magnesium Oxide 400 MG TABLET PO SCH (09:03)
[2019-07-20] MEDS: Aspirin 81 MG TAB.CHEW PO SCH (09:03)
[2019-07-20] MEDS: Sennosides 8.6 MG TABLET PO SCH (09:03)
[2019-07-20] MEDS: Metoprolol XL (24 HR) Succ 25 MG TAB.ER.24H PO SCH (09:04)
[2019-07-20] MEDS ORDERED: *HR* Heparin 10,000 UNIT/10 ML VIAL IV PRN (09:26)
[2019-07-20 12:25] VITALS: BP 127/51
== END 2019-07-20 14:26 | DRG 870 ==
LOC: EMEROOARM 10:40 → ICNU 15:38 → SUATTDRO 15:38 → ICNU 19:39 → 2ANU 07-06 17:21
PROVIDERS: ADMIT Pediatrics; ATTEND Internal Medicine
PROC: IRPERMA (2019-07-08 12:00)